=== PATIENT | female | born 1930 | race Caucasian/White ===

== ENCOUNTER 2017-03-23 17:12 | Inpatient (IN) | payer OTHER, MEDICARE ==
[~2017-03-23] VITALS: Ht 165.1 cm; Wt 64.5 kg
[~2017-03-23 17:12] MED LIST: BP MEDICATION; CIPR500T4 PO; GLUC10TA3 OR; GLUCTAB OR; LISI-360 PO; UNK CHOLESTEROL; [UNRECOGNIZED DRUG - REMARK]
[2017-03-23 17:18] VITALS: BP 116/63; PULSE 93; RESP 14; TEMP 97.8; O2SAT 98
[2017-03-23] MEDS ORDERED: LEVO100T5 PO (18:15)
[2017-03-23] MEDS ORDERED: LEVO50TA4 PO (18:15)
[2017-03-23] MEDS ORDERED: HYDR12.57 PO (18:15)
[2017-03-23] MEDS ORDERED: AMLO10TA2 PO (18:15)
[2017-03-23] MEDS ORDERED: SODIUM CHLORIDE 0.9% FLUSH 10 ML FLUSH IVF PRN (18:15)
[2017-03-23] MEDS ORDERED: INSULIN HUMAN REGULAR 1,000 UNITS/10 ML VIAL IV PUSH ONE (18:15)
[2017-03-23] MEDS ORDERED: METF1000 PO (18:16)
--- NOTE | 2017-03-23 18:30 | PD ---
HPI Chief Complaint: Altered Mental Status Time Seen by Provider: 17:48 Travel History International Travel<30 days: No Contact w/Intl Traveler<30days: No Traveled to known affect area: No History of Present Illness HPI This patient developed slurring of speech and a facial droop 2 days ago. Yesterday she developed weakness of her left leg. Her daughter brings her in today for evaluation of these neurologic symptoms. Severity is moderate. No alleviating factors. She denies prior history of stroke. She takes no blood thinners and has had no head injury. Duration 2 days. PFSH Past Medical History Hx Anticoagulant Therapy: Yes (ASPIRIN 81MG) Diabetes: Yes Patient Takes Glucophage: Yes Diminished Hearing: No Hypertension: Yes Respiratory: Yes (BRONCHITIS/pna) Influenza Vaccination: Yes ?: Not Menopausal: Yes Past Surgical History Tonsillectomy: Yes Social History Alcohol Use: No Tobacco Use: No Substance Use: No Allergies-Medications (Allergen,Severity, Reaction): Coded Allergies: Codeine (Verified Allergy, Severe, UNKNOWN "YRS AGO", 03/23/17) Reported Meds & Prescriptions Reported Meds & Active Scripts Active Reported Metformin (Metformin HCl) 1,000 Mg Tab 1,000 Mg PO BIDPC With meals Hydrochlorothiazide 12.5 Mg Cap 12.5 Mg PO DAILY IN THE MORNING Amlodipine (Amlodipine Besylate) 10 Mg Tab 10 Mg PO DAILY Levothyroxine (Levothyroxine Sodium) 50 Mcg Tab 50 Mcg PO MOTUTHFRSA Levothyroxine (Levothyroxine Sodium) 100 Mcg Tab 100 Mcg PO SUWE Review of Systems General / Constitutional: No: Fever Eyes: No: Visual changes HENT: No: Headaches Cardiovascular: No: Chest Pain or Discomfort Respiratory: No: Shortness of Breath Gastrointestinal: No: Abdominal Pain Genitourinary: No: Dysuria Musculoskeletal: Positive: Weakness, No: Pain Skin: No Rash Neurologic: Positive: Weakness, Slurred Speech Psychiatric: No: Depression Endocrine: No: Polydipsia Hematologic/Lymphatic: No: Easy Bruising Physical Exam Narrative GENERAL: Well-nourished, well-developed patient in no apparent distress. SKIN: Focused skin assessment reveals no rash and nodules. Skin is Warm and dry. HEAD: Atraumatic. Normocephalic. EYES: Pupils equal and round. No scleral icterus. No injection or drainage. ENT: No nasal bleeding or discharge. Mucous membranes pink and moist. NECK: Trachea midline. No JVD. CARDIOVASCULAR: Regular rate and rhythm. No murmur appreciated. RESPIRATORY: No accessory muscle use. Clear to auscultation. Breath sounds equal bilaterally. GASTROINTESTINAL: Abdomen soft, non-tender, nondistended. Hepatic and splenic margins not palpable. MUSCULOSKELETAL: No obvious deformities. No clubbing. No cyanosis. No edema. NEUROLOGICAL: Awake and alert. Has a left-sided facial droop. Motor exam reveals some weakness of the left leg compared to the right leg. Upper extremities are symmetric and full. Her speech is understandable with just a hint of slurring. PSYCHIATRIC: Appropriate mood and affect; insight and judgment normal. Data Data Last Documented VS Vital Signs Date Time Temp Pulse Resp B/P Pulse Ox O2 Delivery O2 Flow Rate FiO2 03/23/17 18:37 96 Room Air 03/23/17 17:18 97.8 93 14 116/63 Orders Electrocardiogram (03/23/17 18:08) Prothrombin Time / Inr (Pt) (03/23/17 18:08) Act Partial Throm Time (Ptt) (03/23/17 18:08) Complete Blood Count With Diff (03/23/17 18:08) Basic Metabolic Panel (Bmp) (03/23/17 18:08) Ct Brain W/O Iv Contrast(Rout) (03/23/17 18:08) Ecg Monitoring (03/23/17 18:08) Iv Access Insert/Monitor (03/23/17 18:08) Oximetry (03/23/17 18:08) Blood Glucose (03/23/17 18:08) Sodium Chloride 0.9% Flush (Ns Flush) (03/23/17 18:15) Insulin Human Regular Inj (Novolin R Inj (03/23/17 18:15) Admit Order (Ed Use Only) (03/23/17 18:43) Labs Laboratory Tests Test 03/23/17 18:12 White Blood Count 10.3 TH/MM3 Red Blood Count 4.08 MIL/MM3 Hemoglobin 10.9 GM/DL Hematocrit 33.3 % Mean Corpuscular Volume 81.8 FL Mean Corpuscular Hemoglobin 26.8 PG Mean Corpuscular Hemoglobin 32.8 % Concent Red Cell Distribution Width 14.9 % Platelet Count 220 TH/MM3 Mean Platelet Volume 9.9 FL Neutrophils (%) (Auto) 69.8 % Lymphocytes (%) (Auto) 19.9 % Monocytes (%) (Auto) 6.2 % Eosinophils (%) (Auto) 3.4 % Basophils (%) (Auto) 0.7 % Neutrophils # (Auto) 7.2 TH/MM3 Lymphocytes # (Auto) 2.1 TH/MM3 Monocytes # (Auto) 0.6 TH/MM3 Eosinophils # (Auto) 0.4 TH/MM3 Basophils # (Auto) 0.1 TH/MM3 CBC Comment DIFF FINAL Differential Comment Prothrombin Time 10.1 SEC Prothromb Time International 0.9 RATIO Ratio Activated Partial 24.4 SEC Thromboplast Time MDM Medical Decision Making Medical Screen Exam Complete: Yes Emergency Medical Condition: Yes Medical Record Reviewed: Yes Differential Diagnosis CVA, TIA, intracranial lesion Narrative Course I have reviewed the patient's electronic medical record. IV placed CBC is normal Metabolic profile pending but will be reviewed shortly Coagulation studies are normal Brain CT is normal Presentation seems consistent with an acute ischemic stroke that happened 2 days ago. She did get an acute worsening yesterday in terms of left leg weakness. She is well out of any sort of TPA consideration given the length of symptoms. Call is placed to the hospitalist for admission for acute ischemic CVA. I will discuss when he calls. I gave her an aspirin Diagnosis Primary Impression: Acute ischemic right MCA stroke Admitting Information Admitting Physician Requests: it Mehrdad June MD March 23, 2017 18:30
[2017-03-23 18:31] LABS: AUTOMATED NEUTROPHIL # 7.2 TH/MM3 (1.8-7.7); BASOPHIL # 0.1 TH/MM3 (0-0.2); BASOPHIL % 0.7 % (0.0-2.0); EOSINOPHIL # 0.4 TH/MM3 (0-0.4); EOSINOPHIL % 3.4 % (0.0-4.0); HEMATOCRIT 33.3 % (35.0-46.0); HEMO FLAGS DIFF FINAL; LYMPH % 19.9 % (9.0-44.0); LYMPHOCYTE # 2.1 TH/MM3 (1.0-4.8); MEAN CELL VOLUME 81.8 FL (80.0-100.0); MEAN CORPUSCULAR HEMOGLOBIN 26.8 PG (27.0-34.0); MEAN CORPUSCULAR HGB CONC 32.8 % (32.0-36.0); MONO % 6.2 % (0.0-8.0); NEUT % 69.8 % (16.0-70.0); PLATELET COUNT 220 TH/MM3 (150-450); RED BLOOD COUNT 4.08 MIL/MM3 (4.00-5.30); RED CELL DISTRIBUTION WIDTH 14.9 % (11.6-17.2); WHITE BLOOD COUNT 10.3 TH/MM3 (4.0-11.0)
--- NOTE | 2017-03-23 18:34 | RADRPT ---
EXAM DATE/TIME: 03/23/2017 18:25 [facility] COMPARISON: No previous studies available for comparison. INDICATIONS : Altered mental status. RADIATION DOSE: 31.24 CTDIvol (mGy) MEDICAL HISTORY : Hypertension. Diabetes mellitus type 2. SURGICAL HISTORY : None. ENCOUNTER: Initial ACUITY: 1 day PAIN SCALE: 0/10 LOCATION: cranial TECHNIQUE: Multiple contiguous axial images were obtained of the head. Using automated exposure control and adj ustment of the mA and/or kV according to patient size, radiation dose was kept as low as reasonably a chievable to obtain optimal diagnostic quality images. FINDINGS: CEREBRUM: The ventricles are normal for age with moderate atrophic change with sulcal and ventricular prominenc e. Periventricular white matter lucencies are noted characteristic of chronic small vessel ischemic c hange. No evidence of midline shift, mass lesion, hemorrhage or acute infarction. No extra-axial flu id collections are seen. POSTERIOR FOSSA: The cerebellum and brainstem are intact. The 4th ventricle is midline. The cerebellopontine angle i s unremarkable. EXTRACRANIAL: The visualized portion of the orbits is intact. SKULL: The calvaria is intact. No evidence of skull fracture. CONCLUSION: 1. No acute hemorrhage or mass effect. 2. Atrophy and chronic small vessel ischemic change. Trever Bautista MD on March 23, 2017 at 18:32 Board Certified Radiologist. This report was verified electronically.
[2017-03-23 18:37] VITALS: O2SAT 96
[2017-03-23 18:43] LABS: APTT (PATIENT) 24.4 SEC (24.3-30.1); INTERNATIONAL NORMALIZED RATIO 0.9 RATIO; PROTHROMBIN TIME - PATIENT 10.1 SEC (9.8-11.6)
[2017-03-23] MEDS ORDERED: ASPIRIN 325 MG TAB PO ONE (19:00)
[2017-03-23 19:12] LABS: BICARBONATE 24.4 MEQ/L (21.0-32.0)
[2017-03-23 19:13] LABS: POTASSIUM 4.9 MEQ/L (3.5-5.1)
--- NOTE | 2017-03-23 20:19 | EKG ---
Date Performed: 03/23/2017 Time Performed: 17:58:39 PTAGE: 86 years EKG: Sinus rhythm WITH OCCASIONAL ECTOPIC PREMATURE COMPLEXES LOW QRS VOLTAGE IN PRECORDIAL LEADS POSSIBLE RIGHT VENTR ICULAR CONDUCTION DELAY INFERIOR Q WAVES ABNORMAL ECG PREVIOUS TRACING : 03/16/2014 15.40 Compared to prior tracing no significant change DOCTOR: Cathy Taylor Interpretating Date/Time 03/23/2017 20:17:25
[2017-03-23] MEDS: LEVOTHYROXINE SODIUM 50 MCG TAB PO SCH (21:00)
[2017-03-23] MEDS ORDERED: SODIUM CHLORIDE 0.9% FLUSH 10 ML FLUSH IV FLUSH PRN (21:30)
[2017-03-23] MEDS ORDERED: NALOXONE HCL 0.4 MG/ML AMP IV PRN (21:30)
[2017-03-23] MEDS ORDERED: SENNOSIDES 8.6 MG TAB PO PRN (21:30)
[2017-03-23] MEDS ORDERED: ACETAMINOPHEN 325 MG TAB PO PRN ×2 (21:30)
--- NOTE | 2017-03-23 21:40 | HHI.HP ---
[facility] Regulo Loya MD Admission Diagnosis acute ischemic CVA Diagnoses: Chief Complaint: Difficulty with speech, left leg swelling Travel History International Travel<30 Days: No Contact w/Intl Traveler <30 Da: No Traveled to Known Affected Are: No History of Present Illness The patient is an 86-year-old female with past medical history of hypertension and diabetes who is presenting to the hospital with slurred speech, facial droop and left leg swelling. The patient is unclear of why she is in the hospital. Her family elaborated that Wednesday morning the patient was acting different than usual. They mentioned the patient's speech was slurred and she had evidence of facial droop. They also noticed that the patient has not been cooking or eating. The patient herself denies any acute complaints. Today the patient was supposed to go to a primary care doctor appointment but that appointment was canceled by the primary care doctor. The patient's family noted that the patient's left foot was swollen and purple and they were concerned about that so the patient was taken to the hospital. The patient denies any prior episodes of slurred speech or facial droop. The patient's family states that the patient is acting more confused than usual. The patient denies any shortness of breath, chest pain or fevers. Review of Systems Except as stated in HPI: all other systems reviewed are Neg Past Family Social History Past Medical History Diabetes Hypertension Hypothyroidism Allergies: Coded Allergies: Codeine (Verified Allergy, Severe, UNKNOWN "YRS AGO", 03/23/17) Active Ordered Medications Current Medications Medications (Trade) Dose Ordered Sig/Ann Route Start Time Stop Time Status Last Admin (NS Flush) 2 ml UNSCH PRN IVF 03/23/17 18:15 (Synthroid) 50 mcg MoTuThFrSa@06 PO 03/23/17 21:00 Levothyroxine Sodium 100 mcg 100 mcg SuWe@06 PO 03/24/17 06:00 (1/2 NS 1000 ml Inj) 1,000 ml @ 75 mls/hr [id number] IV 03/23/17 21:17 03/24/17 23:56 UNV (NS Flush) 2 ml UNSCH PRN IV FLUSH 03/23/17 21:30 UNV (NS Flush) 2 ml BID IV FLUSH 03/24/17 09:00 UNV (Tylenol) 650 mg Q4H PRN PO 03/23/17 21:30 UNV (Colace) 100 mg Q12H PO 03/23/17 21:30 UNV (Senokot) 17.2 mg Q12H PRN PO 03/23/17 21:30 UNV (Heparin Inj) 5,000 units Q8H SQ 03/23/17 21:30 UNV (Tylenol) 650 mg Q6H PRN PO 03/23/17 21:30 UNV (Narcan Inj) 0.4 mg UNSCH PRN IV 03/23/17 21:30 UNV Family History The patient's mother had many mini strokes Social History The patient does not smoke or drink. Physical Exam Vital Signs Vital Signs Date Time Temp Pulse Resp B/P Pulse Ox O2 Delivery O2 Flow Rate FiO2 03/23/17 18:37 96 Room Air 03/23/17 17:18 97.8 93 14 116/63 98 Physical Exam GENERAL: Well-nourished, well-developed patient in no apparent distress. SKIN: Focused skin assessment reveals no rash and nodules. Skin is Warm and dry. HEAD: Atraumatic. Normocephalic. EYES: Pupils equal and round. No scleral icterus. No injection or drainage. ENT: No nasal bleeding or discharge. Mucous membranes pink and moist. NECK: Trachea midline. No JVD. CARDIOVASCULAR: Regular rate and rhythm. No murmur appreciated. RESPIRATORY: No accessory muscle use. Clear to auscultation. Breath sounds equal bilaterally. GASTROINTESTINAL: Abdomen soft, non-tender, nondistended. Hepatic and splenic margins not palpable. MUSCULOSKELETAL: No obvious deformities. No clubbing. Left lower extremity with 1-2+ edema. No calf tenderness. NEUROLOGICAL: Awake and alert. Has a left-sided facial droop. Motor exam normal. Her speech is clear. PSYCHIATRIC: Appropriate mood and affect; insight and judgment normal. Laboratory Laboratory Tests Test 03/23/17 18:12 White Blood Count 10.3 Red Blood Count 4.08 Hemoglobin 10.9 Hematocrit 33.3 Mean Corpuscular Volume 81.8 Mean Corpuscular Hemoglobin 26.8 Mean Corpuscular Hemoglobin 32.8 Concent Red Cell Distribution Width 14.9 Platelet Count 220 Mean Platelet Volume 9.9 Neutrophils (%) (Auto) 69.8 Lymphocytes (%) (Auto) 19.9 Monocytes (%) (Auto) 6.2 Eosinophils (%) (Auto) 3.4 Basophils (%) (Auto) 0.7 Neutrophils # (Auto) 7.2 Lymphocytes # (Auto) 2.1 Monocytes # (Auto) 0.6 Eosinophils # (Auto) 0.4 Basophils # (Auto) 0.1 CBC Comment DIFF FINAL Differential Comment Prothrombin Time 10.1 Prothromb Time International 0.9 Ratio Activated Partial 24.4 Thromboplast Time Sodium Level 134 Potassium Level 4.9 Chloride Level 98 Carbon Dioxide Level 24.4 Anion Gap 12 Blood Urea Nitrogen 28 Creatinine 1.12 Estimat Glomerular Filtration 46 Rate Random Glucose 315 Calcium Level 9.6 Result Diagram: 03/23/17181103/23/171811 Imaging Last Impressions Head CT 03/23/171807 Signed Impressions: Service Date/Time: Thursday, March 23, 2017 18:25 - CONCLUSION: 1. No acute hemorrhage or mass effect. 2. Atrophy and chronic small vessel ischemic change. Trever Bautista MD Assessment and Plan Assessment and Plan Acute CVA The pt presented with left sided facial droop and slurred speech that started Wednesday morning at the latest. CT of the brain unremarkable. She received ASA. - continue ASA. - MRI of brain, echo, carotid duplex pending. - check a TSH and a lipid profile. - permissive HTN. - IVFs. - ST/ PT/ OT. - case management consult. - Check a UA and chest x-ray. Left leg swelling New onset. Concern for DVT. - US pending. Acute renal insufficiency Unsure of baseline. - IV fluids. - Avoid nephrotoxic agents. DM On metformin as an outpt. - hold metformin. - check an A1c. - insulin sliding scale with Accu-Cheks. HTN Blood pressure well controlled at this time. - hold home meds and monitor. Hypothyroidism On levothyroxine as an outpt. - check a TSH. - continue home med. PPx: Heparin Code Status DNR Discussed Condition With Pt, pt's family, Dr. June. Physician Certification 2 Midnight Certification Type: Admission for Inpatient Services Order for Inpatient Services The services are ordered in accordance with Medicare regulations or non- Medicare payer requirements, as applicable. In the case of services not specified as inpatient-only, they are appropriately provided as inpatient services in accordance with the 2-midnight benchmark. Estimated LOS (days): 2 days is the estimated time the patient will need to remain in the hospital, assuming treatment plan goals are met and no additional complications. Post-Hospital Plan: Not yet determined Trever Valenzuela DO March 23, 2017 21:40
[2017-03-23 21:48] VITALS: O2SAT 96
--- NOTE | 2017-03-23 21:49 | RADRPT ---
EXAM DATE/TIME: 03/23/2017 21:30 [facility] COMPARISON: CHEST SINGLE AP, March 16, 2014, 15:55. INDICATIONS : Shortness of breath. MEDICAL HISTORY : None. SURGICAL HISTORY : None. ENCOUNTER: Initial ACUITY: 1 day PAIN SCORE: 0/10 LOCATION: Bilateral chest FINDINGS: A single view of the chest demonstrates the lungs to be symmetrically aerated without evidence of mas s, infiltrate or effusion. The cardiomediastinal contours are unremarkable. Osseous structures are intact. CONCLUSION: No acute disease. Trever Bautista MD on March 23, 2017 at 21:47 Board Certified Radiologist. This report was verified electronically.
[2017-03-23] MEDS: DOCUSATE SODIUM 100 MG CAP PO SCH (21:57)
[2017-03-23] MEDS: SODIUM CHLOR 0.45% 1000 ML INJ 1,000 ML IV SCH (21:57)
[2017-03-23] MEDS ORDERED: HEPARIN SODIUM - SQ 10,000 UNITS/ML VIAL SQ SCH (22:00)
[2017-03-23 22:32] VITALS: BP 142/77; PULSE 88; RESP 16; O2SAT 97
--- NOTE | 2017-03-23 23:00 | RADRPT ---
EXAM DATE/TIME: 03/23/2017 22:35 [facility] COMPARISON: CT BRAIN W/O CONTRAST, March 23, 2017, 18:25. INDICATIONS : Patient with altered mental status. Evaluate for CVA. MEDICAL HISTORY : Diabetes mellitus type 2. SURGICAL HISTORY : Tonsillectomy. ENCOUNTER: Subsequent ACUITY: 1 day PAIN SCORE: 0/10 LOCATION: cranial TECHNIQUE: Multiplanar, multisequence MRI of the brain was performed without contrast. FINDINGS: CEREBRUM: The ventricles are normal for age. No evidence of midline shift, mass lesion, hemorrhage or acute in farction. No extraaxial fluid collections are seen. The pituitary gland and suprasellar cistern are normal in configuration. WHITE MATTER: On the flow images there is increased signal noted in the periventricular white matter and centrum se miovale in a pattern characteristic of chronic small vessel ischemic change. POSTERIOR FOSSA: The cerebellum and brainstem are intact. The 4th ventricle is midline. The cerebellopontine angle is unremarkable. The cerebellar tonsils are normal in position. DIFFUSION IMAGING: No focal areas of restricted diffusion are seen. No evidence of acute infarction. EXTRACRANIAL: The visualized portions of the orbits and paranasal sinuses are unremarkable. CONCLUSION: 1. No acute hemorrhage, mass or infarction. 2. Extensive chronic small vessel ischemic change. Trever Bautista MD on March 23, 2017 at 22:56 Board Certified Radiologist. This report was verified electronically.
--- NOTE | 2017-03-23 23:35 | RADRPT ---
EXAM DATE/TIME: 03/23/2017 23:09 [facility] COMPARISON: No previous studies available for comparison. INDICATIONS : Left leg swelling. MEDICAL HISTORY : Diabetes. Hypertension. Anticoagulant thepary, Aspirin 81mg. SURGICAL HISTORY : Tonsillectomy. ENCOUNTER: Initial ACUITY: 2 day PAIN SCORE: 0/10 LOCATION: Left leg. TECHNIQUE: Venous ultrasound of the leg was performed from the inguinal ligament to the proximal calf. Real-vern e, color Doppler and spectral tracing, compression and augmentation techniques were used. FINDINGS: There is extensive deep venous thrombosis from external iliac vein down to common femoral, superficia l femoral vein into popliteal vein and below the knee vessels. There is also thrombus within the grea ter saphenous vein. CONCLUSION: Extensive DVT. Marlen Jett MD on March 23, 2017 at 23:33 Board Certified Radiologist. This report was verified electronically.
[2017-03-23 23:36] LABS: BACTERIA, URINE MANY /hpf; BLOOD, URINE TRACE (NEG); COMMENT (UR) CULTURE INDICATED; CULTURE IF INDICATED CULTURE INDICATED; GLUCOSE,URINE 1000 mg/dL (NEG); KETONE, URINE NEG (NEG); MUCUS URINE FEW /lpf (OCC); NITRITE,URINE NEG (NEG); SQUAMOUS EPITHELIAL CELL URINE 57 /hpf (0-5); URINE COLOR YELLOW (YELLW/STRAW)
[2017-03-24] VITALS (8 sets, daily range): BP systolic 135–164; BP diastolic 62–78; PULSE 72–88; RESP 16–20; TEMP 96.3–97.6; O2SAT 93–100
--- NOTE | 2017-03-24 00:35 | RADRPT ---
EXAM DATE/TIME: 03/23/2017 22:55 [facility] COMPARISON: No previous studies available for comparison. INDICATIONS : Cerebrovascular accident. Facial droop. Left leg weakness. MEDICAL HISTORY : Hypertension. Diabetes. Anticoagulant therapy, Aspirin 81mg. SURGICAL HISTORY : Tonsillectomy. ENCOUNTER: Initial ACUITY: 2 days PAIN SCORE: 0/10 LOCATION: Bilateral neck PEAK SYSTOLIC VELOCITIES (cm/sec): ICA/CCA RATIO: Right: 0.5 Left: 0.9 ICA: Right: 52 Left: 79 CCA: Right: 102 Left: 88 ECA: Right: 124 Left: 74 VERTEBRAL: Right: 58 antegrade Left: 48 antegrade Elevated flow velocities and ICA/CCA ratios have been found to correlate with increased degrees of vessel stenosis, calculated as percentage of diameter relative to a normal segment of distal ICA/CCA FINDINGS: Antegrade flow is seen in both vertebral arteries. There is mild atherosclerotic plaquing at the orig in of left ICA without any significant stenosis. CONCLUSION: No evidence for hemodynamically significant stenosis. Marlen Jett MD on March 24, 2017 at 0:32 Board Certified Radiologist. This report was verified electronically.
[2017-03-24] MEDS ORDERED: HEPARIN SODIUM - IV 10,000 UNITS/10 ML VIAL IV ONE (02:00)
[2017-03-24] MEDS: cefTRIAXone INJ 1,000 MG in SODIUM CHLORIDE 0.9% INJ 100 ML IV SCH (02:31)
[2017-03-24 03:02] LABS: AUTOMATED NEUTROPHIL # 4.1 TH/MM3 (1.8-7.7); BASOPHIL % 0.3 % (0.0-2.0); EOSINOPHIL # 0.2 TH/MM3 (0-0.4); EOSINOPHIL % 3.2 % (0.0-4.0); HEMO FLAGS DIFF FINAL; LYMPHOCYTE # 2.6 TH/MM3 (1.0-4.8); MEAN CELL VOLUME 81.7 FL (80.0-100.0); MONO % 6.6 % (0.0-8.0); NEUT % 54.9 % (16.0-70.0); PLATELET COUNT 203 TH/MM3 (150-450); RED BLOOD COUNT 3.79 MIL/MM3 (4.00-5.30); RED CELL DISTRIBUTION WIDTH 14.6 % (11.6-17.2); WHITE BLOOD COUNT 7.5 TH/MM3 (4.0-11.0)
[2017-03-24 03:13] LABS: APTT (PATIENT) 26.1 SEC (24.3-30.1); INTERNATIONAL NORMALIZED RATIO 0.9 RATIO; PROTHROMBIN TIME - PATIENT 10.1 SEC (9.8-11.6)
[2017-03-24] MEDS: HEPARIN-D5W INJ 250 ML IV SCH (03:38)
[2017-03-24 03:42] LABS: ALKALINE PHOSPHATASE 72 U/L (45-117); ALT (GPT) 16 U/L (10-53); ANION GAP 9 MEQ/L (5-15); AST (GOT) 19 U/L (15-37); BICARBONATE 27.6 MEQ/L (21.0-32.0); BLOOD UREA NITROGEN 26 MG/DL (7-18); CHLORIDE 100 MEQ/L (98-107); GLOMERULAR FILTRATION RATE 58 ML/MIN (>89); HDL CHOLESTEROL 59.7 MG/DL (40.0-60.0); LDL CHOLESTEROL 72 MG/DL (0-99); POTASSIUM 3.7 MEQ/L (3.5-5.1); SODIUM (NA) 137 MEQ/L (136-145); TOTAL BILIRUBIN ADULT 0.5 MG/DL (0.2-1.0)
[2017-03-24] MEDS: INSULIN ASPART SUPPLEMENTAL SCALE SQ SCH ×4 (05:42→21:00)
[2017-03-24] MEDS: LEVOTHYROXINE SODIUM 100 MCG TAB PO SCH (05:47)
[2017-03-24] MEDS ORDERED: HEPARIN SODIUM - IV 10,000 UNITS/10 ML VIAL IV PRN ×2 (08:00)
[2017-03-24] MEDS: ASPIRIN EC 81 MG TABEC PO SCH (09:22)
[2017-03-24] MEDS: SODIUM CHLORIDE 0.9% FLUSH 10 ML FLUSH IV FLUSH SCH ×2 (09:22→21:00)
[2017-03-24] MEDS: DOCUSATE SODIUM 100 MG CAP PO SCH ×2 (09:22→22:00)
--- NOTE | 2017-03-24 11:04 | EC ---
Study Study Date:03/24/2017 STUDY CONCLUSIONS SUMMARY LEFT VENTRICLE: The cavity size was normal. Wall thickness was increased in a pattern of mild LVH. There was concentric hypertrophy. Systolic function was normal. The estimated ejection fraction was in the range of 60% to 65%. Although no diagnostic regional wall motion abnormality was identified, this possibility cannot be completely excluded on the basis of this study. Doppler parameters are consistent with abnormal left ventricular relaxation (grade 1 diastolic dysfunction). If LV function is below 40, please consider prescribing an ACEI or ARB or document rationale for non-use. PROCEDURE DATA STUDY STATUS: Elective. Procedure: Transthoracic echocardiography. Image quality was good. Scanning was performed from the parasternal, apical, and subcostal acoustic windows. Study completion: The patient tolerated the procedure well. Transthoracic echocardiography. M-mode, complete 2D, complete spectral Doppler, and color Doppler. Height: Height: 67in. Weight: Weight: 133.7lb. Body mass index: BMI: 21kg/m^2. Body surface area: BSA: 1.71m^2. Patient status: Inpatient. CARDIAC ANATOMY LEFT VENTRICLE: The cavity size was normal. Wall thickness was increased in a pattern of mild LVH. There was concentric hypertrophy. Systolic function was normal. The estimated ejection fraction was in the range of 60% to 65%. Although no diagnostic regional wall motion abnormality was identified, this possibility cannot be completely excluded on the basis of this study. Doppler parameters are consistent with abnormal left ventricular relaxation (grade 1 diastolic dysfunction). AORTIC VALVE: The valve appears to be grossly normal. Trileaflet. Doppler: There was no stenosis. No significant regurgitation. Valve area: 2.61cm^2 (Vmax). Indexed valve area: 1.53cm^2/m^2 (Vmax). MITRAL VALVE: The valve appears to be grossly normal. Doppler: There was no evidence for stenosis. No significant regurgitation. Peak gradient: 3mm Hg (D). LEFT ATRIUM: The atrium was normal in size. PULMONIC VALVE: Not well visualized. Doppler: There was no evidence for stenosis. Trace regurgitation. TRICUSPID VALVE: The valve appears to be grossly normal. Doppler: There was no evidence for stenosis. Trace regurgitation. PERICARDIUM: There was no pericardial effusion. Patient weight: 133.7lb _Ejection fraction:_ 65-75% _Fractional shortening:_ 32% up to 5Kg 5-11.5Kg 11.6-22.9Kg 23-45Kg 45-57Kg Aortic Root 7-13 <17 13-22 17-27 17-27 LA diam 6-13 <23 24-38 33-47 37-40 RVID 10-17 7-15 7-15 7-18 8-17 LVIDd 12-22 <32 24-38 33-47 37-40 LVPW 2-4 3-6 5-7 6-8 7-8 IVS 2-4 3-6 5-7 6-8 7-8 BASIC MEASUREMENTS ADULT NORMAL Left ventricle LV internal dimension, ED, chordal *30.8 mm 43-52 level, PLAX LV internal dimension, ES, chordal 23.1 mm 23-38 level, PLAX Fractional shortening, chordal level, *25 % >29 PLAX LV posterior wall thickness, ED 10.6 mm IVS/LVPW ratio, ED 1.08 <1.3 Ventricular septum Septal thickness, ED 11.5 mm Aortic valve Leaflet separation 19 mm 15-26 BASIC MEASUREMENTS ADULT NORMAL Aortic valve Leaflet separation 19 mm 15-26 Aorta Root diameter, ED 30 mm 20-37 Left atrium Anterior-posterior dimension, ES 28 mm 19-40 Anterior-posterior dimension index, ES 1.64 cm/m^2 <2.2 LA/aortic root ratio 0.93 DOPPLER MEASUREMENTS ADULT NORMAL Aortic valve Peak velocity, S 148 cm/s Valve area, Vmax 2.61 cm^2 Valve area index, Vmax 1.53 cm^2/m^2 Mitral valve Peak E-wave velocity 91.8 cm/s Peak A-wave velocity 124 cm/s Deceleration time 194 ms 150-230 Peak gradient, D 3 mm Hg Peak E/A ratio 0.7 Pulmonic valve Peak velocity, S 111 cm/s Regurgitant velocity, ED 140 cm/s LEGEND: Mean values are shown as u=mean value. Asterisk (*) ingram values outside specified normal range. Prepared and signed by Ceasar Ang [id number]
[2017-03-24 11:43] LABS: APTT (PATIENT) 129.1 SEC (24.3-30.1)
[2017-03-24] MEDS: SODIUM CHLOR 0.45% 1000 ML INJ 1,000 ML IV SCH (11:54)
[2017-03-24 13:38] LABS: APTT (PATIENT) 74.1 SEC (24.3-30.1)
[2017-03-24 15:21] LABS: APTT (PATIENT) 48.1 SEC (24.3-30.1)
[2017-03-24 16:01] LABS: HEMOGLOBIN A1a 1.1 %; HEMOGLOBIN A1b 2.7 %; HEMOGLOBIN Ao 77.9 %; HEMOGLOBIN P3 4.9 %
--- NOTE | 2017-03-24 16:33 | HHI.PR ---
Subjective Remarks Pt evaluated earlier family at bedside. Pt states that she feels well. Doesn't have any pain. Facial drooping per daughter is minimal. PT at bedside and states that pt did have some weakness noted on the left lower extremity upon ambulation. Pt denies any CP/SOB/N/V Objective Vitals Vital Signs Date Time Temp Pulse Resp B/P Pulse Ox O2 Delivery O2 Flow Rate FiO2 03/24/17 12:23 96.4 88 18 164/78 97 03/24/17 09:13 93 21 03/24/17 07:57 96.3 77 18 135/66 95 03/24/17 04:59 97.6 81 16 139/71 98 03/24/17 02:00 72 03/24/17 00:40 97.1 77 16 138/74 100 03/23/17 22:32 88 16 142/77 97 03/23/17 21:48 96 03/23/17 18:37 96 Room Air 03/23/17 17:18 97.8 93 14 116/63 98 I/O 03/23/17 03/23/17 03/23/17 03/24/17 03/24/17 03/24/17 07:00 15:00 23:00 07:00 15:00 23:00 Intake Total 120 ml 240 ml Balance 120 ml 240 ml Intake Oral 120 ml 240 ml # Voids 2 1 Result Diagram: 03/24/17 0238 03/24/17 0238 Imaging Last Impressions Head CT 03/23/17 1808 Signed Impressions: Service Date/Time: Thursday, March 23, 2017 18:25 - CONCLUSION: 1. No acute hemorrhage or mass effect. 2. Atrophy and chronic small vessel ischemic change. Trever Bautista MD Lower Extremity Ultrasound 03/23/17 0000 Signed Impressions: Service Date/Time: Thursday, March 23, 2017 23:09 - CONCLUSION: Extensive DVT. Marlen Jett MD Chest X-Ray 03/23/17 0000 Signed Impressions: Service Date/Time: Thursday, March 23, 2017 21:30 - CONCLUSION: No acute disease. Trever Bautista MD Carotid Artery Ultrasound 03/23/17 0000 Signed Impressions: Service Date/Time: Thursday, March 23, 2017 22:55 - CONCLUSION: No evidence for hemodynamically significant stenosis. Marlen Jett MD Brain MRI 03/23/17 0000 Signed Impressions: Service Date/Time: Thursday, March 23, 2017 22:35 - CONCLUSION: 1. No acute hemorrhage, mass or infarction. 2. Extensive chronic small vessel ischemic change. Trever Bautista MD Objective Remarks GENERAL: Well-nourished, well-developed patient in no apparent distress. CARDIOVASCULAR: Regular rate and rhythm. No murmur appreciated. RESPIRATORY: No accessory muscle use. Clear to auscultation. Breath sounds equal bilaterally. GASTROINTESTINAL: Abdomen soft, non-tender, nondistended. MUSCULOSKELETAL: Left lower extremity with 1+ edema. No calf tenderness. NEUROLOGICAL: Awake and alert. Has a minimal left-sided facial droop. However all other cranial nerves appear normal Motor exam normal. Her speech is clear. She is unable to tell me the year and the month however she recognizes her family members knows where she is able to give me her birthday and her name PSYCHIATRIC: Appropriate mood and affect A/P Assessment and Plan Most likely a TIA The pt presented with left sided facial droop and slurred speech that started Wednesday morning at the latest. CT of the brain unremarkable. She received ASA. - MRI of brain unremarkable other than Extensive chronic small vessel ischemic change, echo shows an EF of 60-65 with grade 1 diastolic dysfunction, carotid duplex negative for stenosis -check MRA - TSH 5.66 and LDL 72 HDL 59 [id number] - permissive HTN. - IVFs. - Speech therapy evaluated the patient and recommends regular thin liquids diet , physical therapy evaluated the patient and recommends PT at rehabilitation, OT consult pending - case management consult. -We'll get a neurology evaluation for further recommendations -UA is positive for UTI, urine cx growing gram neg rods and currently on Rocephin Left leg swelling New onset. Ultrasound of the left lower extremity shows extensive DVT. She was started on heparin drip. I have consulted hematology for further recommendations as far as anticoagulation and length of anticoagulation. This is her first DVT, denies traveling long distances. No family history Acute renal insufficiency Unsure of baseline. - IV fluids. - Avoid nephrotoxic agents. DM On metformin as an outpt. - hold metformin. - check an A1c. - insulin sliding scale with Accu-Cheks. HTN -I have resumed her home medications Hypothyroidism On levothyroxine as an outpt. PPx: Heparin Discharge Planning d/c pending further work-up and clinical improvement Jordana De La Rosa MD March 24, 2017 16:33
[2017-03-24] MEDS ORDERED: WARFARIN SOD 2 MG TAB PO SCH (20:00)
--- NOTE | 2017-03-24 22:05 | MB ---
cc: TRACI PEREZ M.D. DATE OF CONSULTATION 03/24/2017 REASON FOR CONSULTATION TIA. HISTORY OF PRESENT ILLNESS Ms. Cruz is a nice 86-year woman whose daughter noted she had slurred speech, left facial droop. She also had weakness in the left arm and left leg. She came to the hospital. The symptoms have since resolved. She is back to normal. She has noticed to have a DVT in the left leg for which she is on IV heparin. Denies any previous history of stroke or TIA. PAST MEDICAL HISTORY 1. Diabetes. 2. Hypertension. 3. Hypothyroidism. ALLERGIES CODEINE. MEDICATIONS Current medications are: 1. Aspirin 81 mg daily. 2. Heparin IV. 3. Synthroid. 4. Ceftriaxone. 5. Tylenol. 6. Colace p.r.n. NEUROLOGIC EXAMINATION VITAL SIGNS: Blood pressure is 164/78, pulse is 80, respirations 18, temperature 96.4 degrees. Higher cortical functions normal including speech. Cranial nerves are intact. Motor exam she has normal strength and tone of all major groups in both upper and lower extremities. There is no drift. Fine motor skills are normal. Reflexes are symmetric. IMAGING CT of the brain, no acute changes. Atrophy, chronic ischemic demyelinization is present. MRI of the brain chronic ischemic change. No acute change. No acute stroke identified. Carotid ultrasound no evidence for any significant stenosis. LABORATORY DATA White count 7500, hemoglobin is 10.2, hematocrit 31%, platelets 203,000. Sodium is 137, potassium 3.7, chloride 100, CO2 27.6, the BUN is 26, creatinine 0.90. GFR is 58, glucose 262. LDL 72, HDL 59.7. Triglycerides 133. Cholesterol 158. Echocardiogram, EF is 60-65%, concentric LVH is present. Systolic function of the left ventricle normal. The aortic valve is normal. Mitral valve normal. Left atrium normal size. Pulmonic valve trace regurgitation. Tricuspid valve trace regurgitation. Pericardium is normal. IMPRESSION Transient ischemic attack now resolved. RECOMMENDATIONS Continue cardiac monitoring. Rule out A fib. She may be a candidate for long-term awake overnight monitor with a loop recorder following discharge to rule out A fib. Continue anticoagulation for DVT. MD SALAS Coley/SHAMIR /4:00 PM /9:52 PM
--- NOTE | 2017-03-24 22:06 | RADRPT ---
EXAM DATE/TIME: 03/24/2017 21:35 [facility] COMPARISON: MRI BRAIN W/O CONTRAST, March 23, 2017, 22:35. INDICATIONS : Vertigo. MEDICAL HISTORY : Diabetes mellitus type 2. Cardiovascular disease SURGICAL HISTORY : None. ENCOUNTER: Subsequent ACUITY: 2 day PAIN SCORE: 3/10 LOCATION: Bilateral cranial Please note a normal MRA of the brain does not entirely exclude the possibility of a small aneurysm, nor the possibility of distal intracranial vessel disease. TECHNIQUE: 3D time of flight MRA was performed. Source images, multiplanar STS MIP, and 3D volume MIP reconstru ctions were reviewed. FINDINGS: There is excellent visualization of the major intracranial arteries out to the second-order branch ve ssels. There is no evidence for aneurysm, vessel truncation or stenosis, and no evidence for vascula r malformation. 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 CONCLUSION: Normal examination for a patient of this age. Kenji Edmonds MD on March 24, 2017 at 22:03 Board Certified Radiologist. This report was verified electronically.
[2017-03-24 23:13] LABS: APTT (PATIENT) 42.9 SEC (24.3-30.1)
[2017-03-25] VITALS: BP 154/84; PULSE 75; RESP 20; TEMP 96.6; O2SAT 97
[2017-03-25] MEDS: cefTRIAXone INJ 1,000 MG in SODIUM CHLORIDE 0.9% INJ 100 ML IV SCH (01:32)
[2017-03-25] MEDS: LEVOTHYROXINE SODIUM 50 MCG TAB PO SCH (05:49)
--- NOTE | 2017-03-25 06:49 | MB ---
cc: JORDANA DE LA ROSA MD, RUBY ANNE E. M.D. DATE OF CONSULTATION 03/24/2017 DATE OF [address] Jordana De La Rosa CHIEF COMPLAINT Dr. De La Rosa requested consultation for Mrs. Cruz regarding new extensive left lower extremity deep vein thromboses. HISTORY OF PRESENT ILLNESS Mrs. Cruz is an 86-year-old woman with a history of diabetes, hypertension, early dementia. Her story is supplemented by her daughter I called on the phone. Daughter describes that she gave up driving as times she got lost. She could not come home from [place]. She also was advised by Dr. Loya, her primary physician, to possibly give up driving. She lives independently. She has been forgetful. She forgets to eat. She does a lot of sitting around in her recliner, but her legs are down. The Wednesday prior to admission, she apparently was well. Her oil well services dispatcher came to visit. She had no leg swelling. On Wednesday, the patient stayed home alone. The following day on Wednesday, daughter noted some left leg swelling and brought her on over to her house. She rested and elevated the left leg. Despite elevation, the leg became progressively worse and more swollen. At the same time on Wednesday, she noticed a left facial droop. There were a history of slurred speech. She was admitted with altered mental status change. None of this was substantiated by the daughter. She remarked that she brought her in specifically because the left leg was swollen. She was found to have an extensive left lower extremity deep vein thromboses. Ultrasound of the legs shows deep venous thrombosis extending from external iliac vein down to the common femoral, superficial femoral into popliteal and below the knee vessels. There is thrombus within the greater vein as well. She started to feel better after starting on unfractionated heparin. The swelling has gone down. The patient reports that the leg feels less tight. She denies any prior history of venous thromboembolic events. Her daughter thought that she was not eating and drinking on her own either, forgetting. The patient came in with acute renal insufficiency with a BUN of 28, creatinine 1.12. Clinically, she was dry. Renal function improved after hydration was initiated. There are no other provocation for left lower extremity deep vein thromboses. There is no long plane ride, no long car ride. It seems to be unprovoked except possibly by prolonged sitting and dehydration. PAST MEDICAL HISTORY 1. Diabetes 2. Hypertension 3. Dementia 4. Left lower extremity deep vein thromboses 5. Mild anemia PAST SURGICAL HISTORY Tonsillectomy SOCIAL HISTORY Denies any tobacco, alcohol or illicit drug use. FAMILY HISTORY Reports both parents at an older age. No family history of cancer. PHYSICAL EXAM VITALS: Temperature 96.4, heart rate 88, respiratory rate 18, blood pressure 164/78, saturation 97%. GENERAL: Mrs. Fenton is a well-developed elderly pleasant woman in no acute distress. HEAD, EYES, EARS, NOSE, AND THROAT: Her pupils are reactive to light and accommodation. Oropharynx is clear. NECK: Supple. LUNGS: Clear. CARDIOVASCULAR: Exam reveals a normal rate, rhythm. ABDOMEN: Benign. EXTREMITIES: Lower extremities with dusky reddish discoloration of the left leg more prominent than the right. Some mild senile purpura IV site on the right forearm. She is forgetful, but appropriate and pleasant. LABORATORY DATA BUN of 26 and creatinine 0.92, hemoglobin A1c of 10, calcium of 9.4, TSH of 5.66, hemoglobin of 10.2, MCV 81.7. White blood cell and count, platelet count are normal. ASSESSMENT/PLAN Mrs. Cruz is an 86-year-old woman with multiple medical problems including diabetes, hypertension, mild anemia and early dementia. She has had forgetfulness, however, still manages to remain independent at home. From daughters evaluation, apparently the patient is becoming more forgetful to even forgetting to eat and drink. She also sits around which may have precipitated the blood clot. Neurology has been consulted by the primary team. She has some left facial weakness. She denies any other symptoms. No vision changes. No headaches. No other subjective weakness. MRI is unrevealing of the source except for extensive chronic small vessel ischemic changes. The left facial droop seems to be more acute from history of the daughter. We had a lengthy discussion about the risks and benefits of various anticoagulant therapy for the left lower extremity deep vein thromboses. We discussed the risk and benefit of Coumadin versus the new oral anticoagulants. I favor using Coumadin in this elderly 86-year-old woman with mild renal insufficiency. She lives independently, but may be a fall risk. Both anticoagulant therapy would be a risk for her. However in light of the extensive deep vein thromboses, she would need to be on anticoagulation. It seems to be unprovoked except for the period of immobility and lack of drinking. The provocation may be her underlying dementia. I defer to neurology for treatment of the above and may make her functional status better. In the end, I recommend anticoagulant therapy with Coumadin. She is a known patient to Dr. Loya. The patient and her daughter plan to follow up with Dr. Loya upon discharge. We will give information on Coumadin. We will consult with pharmacy to assist in titrating her anticoagulant therapy. I will start with a low dose of Coumadin given that the patient may not have eaten a great deal prior to coming into the hospital and therefore may be vitamin K depleted already. We will continue to bridge to a therapeutic INR with unfractionated heparin. When she is more stable, we can switch to a low-molecular weight heparin. Her questions were answered to her satisfaction. MD TONY Scott/CHAU /7:12 PM /6:32 AM
[2017-03-25] MEDS: INSULIN ASPART SUPPLEMENTAL SCALE SQ SCH ×4 (06:51→20:58)
[2017-03-25] MEDS: HEPARIN-D5W INJ 250 ML IV SCH (07:48)
[2017-03-25 08:00] VITALS: BP 143/80; PULSE 75; RESP 18; TEMP 96.6; O2SAT 94
[2017-03-25] MEDS: SODIUM CHLORIDE 0.9% FLUSH 10 ML FLUSH IV FLUSH SCH ×2 (09:00→20:58)
[2017-03-25] MEDS: HYDROCHLOROTHIAZIDE 12.5 MG CAP PO SCH (09:34)
[2017-03-25] MEDS: DOCUSATE SODIUM 100 MG CAP PO SCH ×2 (09:35→20:58)
[2017-03-25] MEDS: ASPIRIN EC 81 MG TABEC PO SCH (09:35)
[2017-03-25 10:18] LABS: ANION GAP 9 MEQ/L (5-15); BICARBONATE 27.4 MEQ/L (21.0-32.0); BLOOD UREA NITROGEN 12 MG/DL (7-18); CHLORIDE 105 MEQ/L (98-107); FERRITIN 27 NG/ML (8-252); GLOMERULAR FILTRATION RATE 95 ML/MIN (>89); POTASSIUM 3.6 MEQ/L (3.5-5.1); SODIUM (NA) 141 MEQ/L (136-145); TRANSFERRIN IRON PROFILE 240 MG/DL (200-360)
[2017-03-25 12:00] VITALS: BP 120/74; PULSE 77; RESP 18; TEMP 97.8; O2SAT 95
--- NOTE | 2017-03-25 14:07 | PD.ONC.PN ---
Subjective Subjective Remarks L leg feels better. Daughter at bedside with diabetic nurse educator/Coumadin educator. Appetite good, eating well. Objective Data Date Time Temp Pulse Resp B/P Pulse Ox O2 Delivery O2 Flow Rate FiO2 03/25/17 12:00 97.8 77 18 120/74 95 03/25/17 08:00 96.6 75 18 143/80 94 03/25/17 00:00 96.6 75 20 154/84 97 03/24/17 20:00 96.5 81 20 139/62 95 03/24/17 19:00 83 Result Diagram: 03/24/17 0238 03/25/17 0830 Laboratory Results Laboratory Tests Test 03/24/17 03/24/17 03/25/17 14:39 22:57 08:30 Activated Partial 48.1 SEC 42.9 SEC 42.0 SEC Thromboplast Time Sodium Level 141 MEQ/L Potassium Level 3.6 MEQ/L Chloride Level 105 MEQ/L Carbon Dioxide Level 27.4 MEQ/L Anion Gap 9 MEQ/L Blood Urea Nitrogen 12 MG/DL Creatinine 0.60 MG/DL Estimat Glomerular Filtration 95 ML/MIN Rate Random Glucose 131 MG/DL Calcium Level 9.5 MG/DL Iron Level 36 MCG/DL Total Iron Binding Capacity 336 MCG/DL Percent Iron Saturation 10.7 % Ferritin 27 NG/ML Culture Results Microbiology Date/Time Procedure Status Source Growth 03/23/17 23:25 Urine Culture - Final Complete Urine Clean Catch Escherichia Coli Administered Medications Medications (Trade) Dose Ordered Sig/Ann Route PRN Reason Start Time Stop Time Status Last Admin Dose Admin Levothyroxine Sodium (Synthroid) 50 mcg MoTuThFrSa@06 PO 03/23/17 21:00 03/25/17 05:49 Levothyroxine Sodium (Synthroid) 100 mcg SuWe@06 PO 03/24/17 06:00 03/24/17 05:47 Sodium Chloride (NS Flush) 2 ml BID IV FLUSH 03/24/17 09:00 03/24/17 21:00 Docusate Sodium (Colace) 100 mg Q12HR PO 03/23/17 21:30 03/25/17 09:35 Aspirin 81 mg 81 mg DAILY PO 03/24/17 09:00 03/25/17 09:35 Ceftriaxone Sodium 1000 mg/ Sodium Chloride 100 ml @ 200 mls/hr Q24H IV 03/24/17 02:00 03/25/17 01:32 Heparin Sodium/ Dextrose (Heparin-D5W Inj) 250 ml @ 0 mls/hr TITRATE IV 03/24/17 02:00 03/25/17 07:48 Amlodipine Besylate (Norvasc) 10 mg DAILY PO 03/25/17 09:00 03/25/17 09:35 Hydrochlorothiazide (Microzide) 12.5 mg DAILY PO 03/25/17 09:00 03/25/17 09:34 Warfarin Sodium (Coumadin) 2 mg DAILY@16 PO 03/24/17 20:00 03/24/17 22:13 Objective Remarks GENERAL: Well-nourished, elderly woman, well-developed patient. SKIN: Warm and dry. HEAD: Normocephalic. L facial weakness appears less pronounced. EYES: No scleral icterus. No injection or drainage. NECK: Supple, trachea midline. No JVD or lymphadenopathy. LYMPHATIC: No adenopathy. CARDIOVASCULAR: Regular rate and rhythm without murmurs. RESPIRATORY: Breath sounds equal bilaterally. No accessory muscle use. GASTROINTESTINAL: Abdomen soft, non-tender, nondistended. EXTREMITIES: No cyanosis, or edema. MUSCULOSKELETAL: L leg swelling decreased, L leg still larger than R. Assessment/Plan Problem List: (1) DVT (deep venous thrombosis) Status: Acute Plan: LLE DVT, extensive, suspect precipitated by immobility prolonged sitting in recliner, decreased PO/fluid intake. Pt with dementia and lives alone. Daughter suspect mother is not eating or drinking. Discussed [facility] bridge to therapeutic INR Plans to follow with Dr. Loya. Stop UFH switch to Lovenox, increase Coumadin dose. Assessment 86 y/o woman with early dementia still living independently, presents with LLE DVT. Plan 1. Stop UFH 2. Start Lovenox 60mg Q12H 3. Bridge to therapeutic INR 4. Plan to follow up with Dr. Loya 5. Cont w/ DM and Coumadin teaching. Silvia Partida MD March 25, 2017 14:07
--- NOTE | 2017-03-25 14:21 | HHI.PR ---
Subjective Remarks Pt feeling well. has no complaints today, doesn't like the meat from her lunch. daughter at bedside, no worsening of symptoms. facial droop same. Pt ambulated w PT yesterday and daughter was concerned about that. Pt denies any CP/SOB/N/V Objective Vitals Vital Signs Date Time Temp Pulse Resp B/P Pulse Ox O2 Delivery O2 Flow Rate FiO2 03/25/17 12:00 97.8 77 18 120/74 95 03/25/17 08:00 96.6 75 18 143/80 94 03/25/17 00:00 96.6 75 20 154/84 97 03/24/17 20:00 96.5 81 20 139/62 95 03/24/17 19:00 83 I/O 03/24/17 03/24/17 03/24/17 03/25/17 03/25/17 03/25/17 07:00 15:00 23:00 07:00 15:00 23:00 Intake Total 120 ml 240 ml 240 ml Balance 120 ml 240 ml 240 ml Intake Oral 120 ml 240 ml 240 ml # Voids 2 1 3 # Bowel Movements 0 Result Diagram: 03/24/17 0238 03/25/17 0830 Imaging Last Impressions Head Magnetic Resonance Angiography 03/24/17 0000 Signed Impressions: Service Date/Time: Friday, March 24, 2017 21:35 - CONCLUSION: Normal examination for a patient of this age. Kenji Edmonds MD Head CT 03/23/17 1808 Signed Impressions: Service Date/Time: Thursday, March 23, 2017 18:25 - CONCLUSION: 1. No acute hemorrhage or mass effect. 2. Atrophy and chronic small vessel ischemic change. Trever Bautista MD Lower Extremity Ultrasound 03/23/17 0000 Signed Impressions: Service Date/Time: Thursday, March 23, 2017 23:09 - CONCLUSION: Extensive DVT. Marlen Jett MD Chest X-Ray 03/23/17 0000 Signed Impressions: Service Date/Time: Thursday, March 23, 2017 21:30 - CONCLUSION: No acute disease. Trever Bautista MD Carotid Artery Ultrasound 03/23/17 0000 Signed Impressions: Service Date/Time: Thursday, March 23, 2017 22:55 - CONCLUSION: No evidence for hemodynamically significant stenosis. Marlen Jett MD Brain MRI 03/23/17 0000 Signed Impressions: Service Date/Time: Thursday, March 23, 2017 22:35 - CONCLUSION: 1. No acute hemorrhage, mass or infarction. 2. Extensive chronic small vessel ischemic change. Trever Bautista MD Objective Remarks GENERAL: Well-nourished, well-developed patient in no apparent distress. CARDIOVASCULAR: Regular rate and rhythm. No murmur appreciated. RESPIRATORY: No accessory muscle use. Clear to auscultation. Breath sounds equal bilaterally. GASTROINTESTINAL: Abdomen soft, non-tender, nondistended. MUSCULOSKELETAL: Left lower extremity with 1+ edema. No calf tenderness. NEUROLOGICAL: Awake and alert. Has a minimal left-sided facial droop. However all other cranial nerves appear normal Motor exam normal. Her speech is clear. moves all extremities. able to feed herself PSYCHIATRIC: Appropriate mood and affect A/P Assessment and Plan Most likely a TIA The pt presented with left sided facial droop and slurred speech that started Wednesday morning at the latest. CT of the brain unremarkable. She received ASA. - MRI of brain unremarkable other than Extensive chronic small vessel ischemic change, echo shows an EF of 60-65 with grade 1 diastolic dysfunction, carotid duplex negative for stenosis - MRA-unremarkable - TSH 5.66 and LDL 72 HDL 59 - IVFs. - Speech therapy evaluated the patient and recommends regular thin liquids diet , physical therapy evaluated the patient and recommends PT at rehabilitation, OT following and recommends OT at rehab - case management consult. - Neuro evaluated the pt. suspect TIA and feels that pt may be a candidate for shelter cardiac loop monitoring to r/o atria fib. pt already being anticoagulated -UA is positive for UTI, urine cx growing E. Coli sensitive to Rocephin Left leg swelling New onset. Ultrasound of the left lower extremity shows extensive DVT. She was started on heparin drip. hematology evaluated the pt and started her on coumadin (coumadin teaching in place). heparin has arden stopped and pt started on therapeutic lovenox. This is her first DVT, denies traveling long distances. No family history Acute renal insufficiency Unsure of baseline. - IV fluids. - Avoid nephrotoxic agents. DM On metformin as an outpt. - hold metformin. - HbA1c of 10. started pt on levemir 5 units at bedtime. informatics educator consult - insulin sliding scale with Accu-Cheks. HTN -on her home medications Hypothyroidism On levothyroxine as an outpt. PPx: Heparin Discharge Planning Monitor INRs Jordana De La Rosa MD March 25, 2017 14:21
[2017-03-25 16:00] VITALS: BP 120/64; PULSE 75; RESP 18; TEMP 96; O2SAT 94
[2017-03-25] MEDS ORDERED: WARFARIN SOD 2 MG TAB PO ONE (16:00)
[2017-03-25] MEDS: ENOXAPARIN SODIUM 60 MG/0.6 ML SYRINGE SQ SCH (16:47)
[2017-03-25] MEDS: WARFARIN SOD 5 MG TAB PO SCH (16:49)
[2017-03-25 20:00] VITALS: BP 122/58; PULSE 63; RESP 20; TEMP 97.9; O2SAT 96
[2017-03-25] MEDS ORDERED: INSULIN DETEMIR 100 UNITS/ML VIAL SQ SCH (21:00)
--- NOTE | 2017-03-25 21:11 | HHI.PR ---
Review/Management Diagnosis TIA--stable Plan coumadin should be protective for TIA as well Diagnosis/Plan: Subjective Subjective Comments No acute events reported no additional TIA sx. coumadin started Active Medications Current Medications Medications (Trade) Dose Ordered Sig/Ann Route Start Time Stop Time Status Last Admin (Synthroid) 50 mcg MoTuThFrSa@06 PO 03/23/17 21:00 03/25/17 05:49 (Synthroid) 100 mcg SuWe@06 PO 03/24/17 06:00 03/24/17 05:47 (NS Flush) 2 ml UNSCH PRN IV FLUSH 03/23/17 21:30 (NS Flush) 2 ml BID IV FLUSH 03/24/17 09:00 03/25/17 20:58 (Tylenol) 650 mg Q4H PRN PO 03/23/17 21:30 (Colace) 100 mg Q12HR PO 03/23/17 21:30 03/25/17 20:58 (Senokot) 17.2 mg Q12H PRN PO 03/23/17 21:30 (Tylenol) 650 mg Q6H PRN PO 03/23/17 21:30 (Narcan Inj) 0.4 mg UNSCH PRN IV 03/23/17 21:30 Aspirin 81 mg 81 mg DAILY PO 03/24/17 09:00 03/25/17 09:35 (Rocephin Inj/NS Inj) 100 ml @ 200 mls/hr Q24H IV 03/24/17 02:00 03/25/17 01:32 (Norvasc) 10 mg DAILY PO 03/25/17 09:00 03/25/17 09:35 Hydrochlorothiazide 12.5 mg 12.5 mg DAILY PO 03/25/17 09:00 03/25/17 09:34 (Coumadin Consult Pharmacy) 0 ml @ 0 mls/hr UNSCH OTHER 03/24/17 19:00 (Lovenox Inj) 60 mg Q12H SQ 03/25/17 16:00 03/25/17 16:47 (Coumadin) 5 mg DAILY@16 PO 03/25/17 16:00 03/25/17 16:49 (Levemir Inj) 5 units HS SQ 03/25/17 21:00 03/25/17 20:57 Allergies Allergies Coded Allergies Codeine (Verified Allergy, Severe, UNKNOWN "YRS AGO", 03/23/17) Exam I&O / VS 03/24/17 03/24/17 03/25/17 15:00 23:00 07:00 Intake Total 240 ml 240 ml Balance 240 ml 240 ml Intake Oral 240 ml 240 ml # Voids 1 3 # Bowel Movements 0 Vital Signs Date Time Temp Pulse Resp B/P Pulse Ox O2 Delivery O2 Flow Rate FiO2 03/25/17 20:00 97.9 63 20 122/58 96 03/25/17 16:00 96.0 75 18 120/64 94 03/25/17 12:00 97.8 77 18 120/74 95 03/25/17 08:00 96.6 75 18 143/80 94 03/25/17 00:00 96.6 75 20 154/84 97 Exam Comments alert, speech normal CN 2-12 normal Motor 03/05 BUE Objective Radiology Results MRA brain normal carotids--no stenosis Micro and Labs Laboratory Tests Test 03/24/17 03/25/17 22:57 08:30 Activated Partial 42.9 42.0 Thromboplast Time Sodium Level 141 Potassium Level 3.6 Chloride Level 105 Carbon Dioxide Level 27.4 Anion Gap 9 Blood Urea Nitrogen 12 Creatinine 0.60 Estimat Glomerular Filtration 95 Rate Random Glucose 131 Calcium Level 9.5 Iron Level 36 Total Iron Binding Capacity 336 Percent Iron Saturation 10.7 Ferritin 27 Date/Time Procedure Status Source Growth 03/23/17 23:25 Urine Culture - Final Complete Urine Clean Catch Escherichia Coli Chuy Islas PhD March 25, 2017 21:11
[2017-03-25 23:08] VITALS: PULSE 87
[2017-03-26] VITALS (7 sets, daily range): BP systolic 128–147; BP diastolic 65–77; PULSE 68–87; RESP 18–20; TEMP 96.8–98.5; O2SAT 96–97
[2017-03-26] MEDS: cefTRIAXone INJ 1,000 MG in SODIUM CHLORIDE 0.9% INJ 100 ML IV SCH (02:24)
[2017-03-26] MEDS: ENOXAPARIN SODIUM 60 MG/0.6 ML SYRINGE SQ SCH ×2 (04:52→15:27)
[2017-03-26] MEDS: LEVOTHYROXINE SODIUM 50 MCG TAB PO SCH (05:04)
[2017-03-26] MEDS: INSULIN ASPART SUPPLEMENTAL SCALE SQ SCH ×4 (06:43→21:59)
[2017-03-26 08:23] LABS: PROTHROMBIN TIME - PATIENT 10.8 SEC (9.8-11.6)
[2017-03-26] MEDS: HYDROCHLOROTHIAZIDE 12.5 MG CAP PO SCH (09:45)
[2017-03-26] MEDS: ASPIRIN EC 81 MG TABEC PO SCH (09:45)
[2017-03-26] MEDS: DOCUSATE SODIUM 100 MG CAP PO SCH ×2 (09:45→21:51)
--- NOTE | 2017-03-26 10:30 | PD.ONC.PN ---
Subjective Subjective Remarks Afebrile overnight. Patient resting comfortably without complaint. Objective Data Date Time Temp Pulse Resp B/P Pulse Ox O2 Delivery O2 Flow Rate FiO2 03/26/17 08:00 97.0 68 20 138/77 96 03/26/17 04:00 96.8 87 20 128/65 97 03/26/17 00:00 98.1 87 20 136/66 97 03/25/17 23:08 87 03/25/17 20:00 97.9 63 20 122/58 96 03/25/17 16:00 96.0 75 18 120/64 94 03/25/17 12:00 97.8 77 18 120/74 95 03/26/17 03/26/17 03/26/17 07:00 15:00 23:00 Intake Total 120 ml Balance 120 ml Result Diagram: 03/24/17 0238 03/25/17 0830 Laboratory Results Laboratory Tests Test 03/26/17 07:35 Prothrombin Time 10.8 SEC Prothromb Time International 1.0 RATIO Ratio Activated Partial 29.0 SEC Thromboplast Time Culture Results Microbiology Date/Time Procedure Status Source Growth 03/23/17 23:25 Urine Culture - Final Complete Urine Clean Catch Escherichia Coli Administered Medications Medications (Trade) Dose Ordered Sig/Ann Route PRN Reason Start Time Stop Time Status Last Admin Dose Admin Levothyroxine Sodium (Synthroid) 50 mcg MoTuThFrSa@06 PO 03/23/17 21:00 03/26/17 05:04 Levothyroxine Sodium (Synthroid) 100 mcg SuWe@06 PO 03/24/17 06:00 03/24/17 05:47 Sodium Chloride (NS Flush) 2 ml BID IV FLUSH 03/24/17 09:00 03/25/17 20:58 Docusate Sodium (Colace) 100 mg Q12HR PO 03/23/17 21:30 03/26/17 09:45 Aspirin 81 mg 81 mg DAILY PO 03/24/17 09:00 03/26/17 09:45 Ceftriaxone Sodium/Sodium Chloride (Rocephin Inj/NS Inj) 100 ml @ 200 mls/hr Q24H IV 03/24/17 02:00 03/26/17 02:24 Amlodipine Besylate (Norvasc) 10 mg DAILY PO 03/25/17 09:00 03/26/17 09:45 Hydrochlorothiazide (Microzide) 12.5 mg DAILY PO 03/25/17 09:00 03/26/17 09:45 Enoxaparin Sodium (Lovenox Inj) 60 mg Q12H SQ 03/25/17 16:00 03/26/17 04:52 Warfarin Sodium (Coumadin) 5 mg DAILY@16 PO 03/25/17 16:00 03/25/17 16:49 Insulin Detemir (Levemir Inj) 5 units HS SQ 03/25/17 21:00 03/25/17 20:57 Objective Remarks GENERAL: Elderly female, sitting up in bed in nad. SKIN: Warm and dry. HEAD: Normocephalic. EYES: No injection or drainage. NECK: Supple, trachea midline. CARDIOVASCULAR: Regular rate and rhythm RESPIRATORY: Breath sounds equal bilaterally. No accessory muscle use. GASTROINTESTINAL: Abdomen soft, non-tender, nondistended. EXTREMITIES: No cyanosis NEUROLOGICAL: awake and alert, normal speech. moving all extremities. Assessment/Plan Problem List: (1) DVT (deep venous thrombosis) Status: Acute Plan: LLE DVT, extensive, suspect precipitated by immobility prolonged sitting in recliner, decreased PO/fluid intake. Pt with dementia and lives alone. Daughter suspect mother is not eating or drinking. Discussed [facility] bridge to therapeutic INR Plans to follow with Dr. Loya. Stop UFH switch to Lovenox, increase Coumadin dose. Assessment 86 y/o woman with early dementia still living independently, presents with LLE DVT. Plan 1. continue Lovenox bridge to coumadin--Dr. Loya to follow outpatient 2. ok to d/c from hematology perspective 3. hematology will sign off. please call or reconsult if needed. Attending Statement The exam, history, and the medical decision-making described in the above note were completed with the assistance of the mid-level provider. I reviewed and agree with the findings presented. I attest that I had a [id number] encounter with the patient on the same day, and personally performed and documented my assessment and findings in the medical record. Pt seen and examined. L leg better, tolerating [facility] bridge to therapeutic INR. Cr now normal. Still with dementia, unable to call her daughter on phone- reports number is always busy, uncomfortable to answer questions wants daugther to answer them. FU w/ PCP further evaluation Dementia. Cont anticoagulant therapy for extensive seemly unprovoked. Unless risk outweigh benefit. Problem Qualifiers (1) DVT (deep venous thrombosis): Naida Aguilar March 26, 2017 10:30 Silvia Partida MD March 26, 2017 17:59
[2017-03-26] MEDS ORDERED: LEVEMIR SQ (13:48)
[2017-03-26] MEDS ORDERED: ENOX60P SQ (13:48)
[2017-03-26] MEDS ORDERED: COUM5TAB PO (13:48)
--- NOTE | 2017-03-26 13:48 | HHI.DS ---
Discharge Summary Admission Date March 23, 2017 at 18:45 Discharge Date: March 26, 2017 Admitting Diagnosis acute ischemic CVA (1) DVT (deep venous thrombosis) ICD Code: I82.409 Diagnosis: Principal (2) TIA (transient ischemic attack) ICD Code: G45.9 Diagnosis: Principal Procedures none Brief History - From Admission The patient is an 86-year-old female with past medical history of hypertension and diabetes who is presenting to the hospital with slurred speech, facial droop and left leg swelling. The patient is unclear of why she is in the hospital. Her family elaborated that Wednesday morning the patient was acting different than usual. They mentioned the patient's speech was slurred and she had evidence of facial droop. They also noticed that the patient has not been cooking or eating. The patient herself denies any acute complaints. Today the patient was supposed to go to a primary care doctor appointment but that appointment was canceled by the primary care doctor. The patient's family noted that the patient's left foot was swollen and purple and they were concerned about that so the patient was taken to the hospital. The patient denies any prior episodes of slurred speech or facial droop. The patient's family states that the patient is acting more confused than usual. The patient denies any shortness of breath, chest pain or fevers. CBC/BMP: 03/24/17 0238 03/25/17 0830 Significant Findings Laboratory Tests Test 03/23/17 03/23/17 03/24/17 03/24/17 18:12 23:25 02:38 10:34 Hemoglobin 10.9 GM/DL 10.2 GM/DL (11.6-15.3) (11.6-15.3) Hematocrit 33.3 % 31.0 % (35.0-46.0) (35.0-46.0) Mean Corpuscular Hemoglobin 26.8 PG (27.0-34.0) Sodium Level 134 MEQ/L (136-145) Blood Urea Nitrogen 28 MG/DL (7-18) 26 MG/DL (7-18) Creatinine 1.12 MG/DL (0.50-1.00) Estimat Glomerular Filtration 46 ML/MIN (>89) 58 ML/MIN (>89) Rate Random Glucose 315 MG/DL 262 MG/DL (74-106) (74-106) Urine Turbidity CLOUDY (CLEAR) Urine Protein 30 mg/dL (NEG-TRACE) Urine Glucose (UA) 1000 mg/dL (NEG) Urine Occult Blood TRACE (NEG) Urine Leukocyte Esterase LARGE (NEG) Urine RBC 8 /hpf (0-3) Urine WBC 70 /hpf (0-5) Urine Bacteria MANY /hpf (NONE) Urine Mucus FEW /lpf (OCC) Red Blood Count 3.79 MIL/MM3 (4.00-5.30) Hemoglobin A1c 10.0 % (4.3-6.0) Albumin 3.3 GM/DL (3.4-5.0) Thyroid Stimulating Hormone 5.660 uIU/ML 3rd Gen (0.358-3.740) Activated Partial 129.1 SEC Thromboplast Time (24.3-30.1) Test 03/24/17 03/24/17 03/24/17 03/25/17 13:05 14:39 22:57 08:30 Activated Partial 74.1 SEC 48.1 SEC 42.9 SEC 42.0 SEC Thromboplast Time (24.3-30.1) (24.3-30.1) (24.3-30.1) (24.3-30.1) Random Glucose 131 MG/DL (74-106) Iron Level 36 MCG/DL (50-170) Percent Iron Saturation 10.7 % (20-50) Imaging Last Impressions Head Magnetic Resonance Angiography 03/24/17 0000 Signed Impressions: Service Date/Time: Friday, March 24, 2017 21:35 - CONCLUSION: Normal examination for a patient of this age. Kenji Edmonds MD Head CT 03/23/17 1808 Signed Impressions: Service Date/Time: Thursday, March 23, 2017 18:25 - CONCLUSION: 1. No acute hemorrhage or mass effect. 2. Atrophy and chronic small vessel ischemic change. Trever Bautista MD Lower Extremity Ultrasound 03/23/17 0000 Signed Impressions: Service Date/Time: Thursday, March 23, 2017 23:09 - CONCLUSION: Extensive DVT. K. Edgar Jett MD Chest X-Ray 03/23/17 Signed Impressions: Service Date/Time: Thursday, March 23, 2017 21:30 - CONCLUSION: No acute disease. Trever Bautista MD Carotid Artery Ultrasound 03/23/17 Signed Impressions: Service Date/Time: Thursday, March 23, 2017 22:55 - CONCLUSION: No evidence for hemodynamically significant stenosis. Marlen Jett MD Brain MRI 03/23/17 Signed Impressions: Service Date/Time: Thursday, March 23, 2017 22:35 - CONCLUSION: 1. No acute hemorrhage, mass or infarction. 2. Extensive chronic small vessel ischemic change. Trever Bautista MD PE at Discharge GENERAL: Well-nourished, well-developed patient in no apparent distress. CARDIOVASCULAR: Regular rate and rhythm. No murmur appreciated. RESPIRATORY: No accessory muscle use. Clear to auscultation. Breath sounds equal bilaterally. GASTROINTESTINAL: Abdomen soft, non-tender, nondistended. MUSCULOSKELETAL: Left lower extremity with 1+ edema. No calf tenderness. NEUROLOGICAL: Awake and alert. Has a minimal left-sided facial droop. However all other cranial nerves appear normal Motor exam normal. Her speech is clear. moves all extremities. able to feed herself PSYCHIATRIC: Appropriate mood and affect Pt update on day of discharge Pt feeling well. Daughter at bedside. talking w breastfeeding educator. No concerns at this time. Pt denies any pain or discomfort. Hospital Course Most likely a TIA The pt presented with left sided facial droop and slurred speech that started Wednesday morning at the latest. CT of the brain unremarkable. She received ASA. - MRI of brain unremarkable other than Extensive chronic small vessel ischemic change, echo shows an EF of 60-65 with grade 1 diastolic dysfunction, carotid duplex negative for stenosis - MRA-unremarkable - TSH 5.66 and LDL 72 HDL 59 [id number] - Speech therapy evaluated the patient and recommends regular thin liquids diet , physical therapy evaluated the patient and recommends PT at rehabilitation, OT following and recommends OT at rehab - Neuro evaluated the pt. suspect TIA and feels that pt may be a candidate for termite exterminator helper cardiac loop monitoring to r/o atria fib. pt already being anticoagulated and coumadin will help w TIA -UA is positive for UTI, urine cx growing E. Coli sensitive to Rocephin and macrobid. will treat for a total of 7 days. pt already received 3 days of rocephin Left leg swelling New onset. Ultrasound of the left lower extremity shows extensive DVT. She was started on heparin drip. hematology evaluated the pt and started her on lovenox bridging w coumadin (coumadin teaching in place). Monitor INR daily Acute renal insufficiency Unsure of baseline. - IV fluids. - Avoid nephrotoxic agents. DM On metformin as an outpt. - hold metformin. - HbA1c of 10. increased levemir 7 units at bedtime. breastfeeding educator did speak w patient and daughter - insulin sliding scale with Accu-Cheks. Pt Condition on Discharge: Stable Discharge Disposition: Discharge to SNF Discharge Time: > 30 minutes Discharge Instructions DIET: Follow Instructions for: Heart Healthy Diet, Diabetic Diet, Coumadin ( Warfarin) Diet Activities you can perform: Regular-No Restrictions Follow up Referrals: Hematology - 2 Weeks Neurology - 2 Weeks Physician - 1 Week New Medications: Nitrofurantoin Monohydrate Macrocrystals (Macrobid) 100 Mg Capsule 100 MG PO BID Infection Days 4 Ref 0 CAP Enoxaparin Inj (Lovenox Inj) 60 Mg/0.6 Ml Syr 60 MG SQ Q12H Days 6 INJECTION Insulin Detemir Inj (Levemir Inj) 1,000 unit/ 10 ML Vial 7 UNITS SQ HS Days 30 INJECTION Warfarin (Coumadin) 5 Mg Tab 5 MG PO DAILY@16 Days 30 TAB Continued Medications: Amlodipine (Amlodipine) 10 Mg Tab 10 MG PO DAILY Blood Pressure Management #30 Ref 0 TAB Hydrochlorothiazide (Hydrochlorothiazide) 12.5 Mg Cap 12.5 MG PO DAILY IN THE MORNING #30 Ref 0 CAP Levothyroxine (Levothyroxine) 100 Mcg Tab 100 MCG PO SuWe Thyroid #30 Ref 0 TAB Levothyroxine (Levothyroxine) 50 Mcg Tab 50 MCG PO MoTuThFrSa Thyroid #30 Ref 0 TAB Metformin (Metformin) 1,000 Mg Tab 1000 MG PO BIDPC With meals Blood Sugar Management #60 Ref 0 TAB Jordana De La Rosa MD March 26, 2017 13:48
[2017-03-26] MEDS: WARFARIN SOD 5 MG TAB PO SCH (15:27)
[2017-03-26] MEDS ORDERED: WARFARIN SOD 1 MG TAB PO SCH (16:00)
[2017-03-26] MEDS ORDERED: MACR100C2 PO (18:04)
[2017-03-26] MEDS: SODIUM CHLORIDE 0.9% FLUSH 10 ML FLUSH IV FLUSH SCH ×2 (21:00→21:51)
[2017-03-26] MEDS: INSULIN DETEMIR 100 UNITS/ML VIAL SQ SCH (21:58)
[2017-03-27] VITALS (7 sets, daily range): BP systolic 115–145; BP diastolic 66–93; PULSE 66–90; RESP 16–20; TEMP 96.8–98.6; O2SAT 96–98
[2017-03-27] MEDS: cefTRIAXone INJ 1,000 MG in SODIUM CHLORIDE 0.9% INJ 100 ML IV SCH (02:34)
[2017-03-27] MEDS: LEVOTHYROXINE SODIUM 50 MCG TAB PO SCH (04:52)
[2017-03-27] MEDS: ENOXAPARIN SODIUM 60 MG/0.6 ML SYRINGE SQ SCH ×2 (04:52→16:39)
[2017-03-27] MEDS: INSULIN ASPART SUPPLEMENTAL SCALE SQ SCH ×4 (06:45→21:46)
[2017-03-27 08:56] LABS: APTT (PATIENT) 28.7 SEC (24.3-30.1); PROTHROMBIN TIME - PATIENT 10.9 SEC (9.8-11.6)
[2017-03-27] MEDS: ASPIRIN EC 81 MG TABEC PO SCH (09:38)
[2017-03-27] MEDS: HYDROCHLOROTHIAZIDE 12.5 MG CAP PO SCH (09:38)
[2017-03-27] MEDS: SODIUM CHLORIDE 0.9% FLUSH 10 ML FLUSH IV FLUSH SCH ×2 (09:38→21:47)
[2017-03-27] MEDS: DOCUSATE SODIUM 100 MG CAP PO SCH ×2 (09:38→21:47)
--- NOTE | 2017-03-27 09:44 | HHI.FF ---
Face to Face Verification Diagnosis: (1) Acute ischemic right MCA stroke (2) DVT (deep venous thrombosis) (3) TIA (transient ischemic attack) Physical Therapy Order: Evaluate and Treat Home Health Nursing Order: Medical education Signs/symptoms of disease process Medication education-adverse effect Nursing assessment with vital signs I have seen patient Gisela Cruz on 03/27/17. My clinical findings support the need for the requested home health care services because: Ltd mobility - disease progression I certify that my clinical findings support that this patient is homebound because: Post-op weakness Unsteady gait/balance Masha Claudio MD March 27, 2017 09:44
--- NOTE | 2017-03-27 09:48 | HHI.PR ---
Subjective Remarks In bed, appears comfortable. Patient says no events overnight. Says she feels good. No new motor.sensory deficit. Denies any cp,sob, n/v/d/c. Objective Vitals Vital Signs Date Time Temp Pulse Resp B/P Pulse Ox O2 Delivery O2 Flow Rate FiO2 03/27/17 08:19 98.3 70 16 132/83 96 03/27/17 04:00 98.1 74 20 145/66 97 03/27/17 00:45 97.7 75 19 140/67 96 03/26/17 21:30 98.5 76 19 147/72 96 03/26/17 16:00 98.2 74 20 142/66 97 03/26/17 12:00 96.8 86 18 146/68 97 I/O 03/26/17 03/26/17 03/26/17 03/27/17 03/27/17 03/27/17 07:00 15:00 23:00 07:00 15:00 23:00 Intake Total 120 ml 600 ml 800 ml Output Total 0 ml Balance 120 ml 0 ml 600 ml 800 ml Intake Oral 120 ml 600 ml 800 ml Output Stool Total 0 ml # Voids 2 4 2 7 # Bowel Movements 0 0 0 Result Diagram: 03/24/17 0238 03/25/17 0830 Imaging Last Impressions Head Magnetic Resonance Angiography 03/24/17 0000 Signed Impressions: Service Date/Time: Friday, March 24, 2017 21:35 - CONCLUSION: Normal examination for a patient of this age. Kenji Edmonds MD Head CT 03/23/17 1808 Signed Impressions: Service Date/Time: Thursday, March 23, 2017 18:25 - CONCLUSION: 1. No acute hemorrhage or mass effect. 2. Atrophy and chronic small vessel ischemic change. Trever Bautista MD Lower Extremity Ultrasound 03/23/17 0000 Signed Impressions: Service Date/Time: Thursday, March 23, 2017 23:09 - CONCLUSION: Extensive DVT. Marlen Jett MD Chest X-Ray 03/23/17 0000 Signed Impressions: Service Date/Time: Thursday, March 23, 2017 21:30 - CONCLUSION: No acute disease. Trever Bautista MD Carotid Artery Ultrasound 03/23/17 0000 Signed Impressions: Service Date/Time: Thursday, March 23, 2017 22:55 - CONCLUSION: No evidence for hemodynamically significant stenosis. Marlen Jett MD Brain MRI 03/23/17 0000 Signed Impressions: Service Date/Time: Thursday, March 23, 2017 22:35 - CONCLUSION: 1. No acute hemorrhage, mass or infarction. 2. Extensive chronic small vessel ischemic change. Trever Bautista MD Objective Remarks GENERAL: Well-nourished, well-developed patient in no apparent distress. CARDIOVASCULAR: Regular rate and rhythm. No murmur appreciated. RESPIRATORY: No accessory muscle use. Clear to auscultation. Breath sounds equal bilaterally. GASTROINTESTINAL: Abdomen soft, non-tender, nondistended. MUSCULOSKELETAL: Left lower extremity with 1+ edema. No calf tenderness. NEUROLOGICAL: Awake and alert. Has a minimal left-sided facial droop. However all other cranial nerves appear normal Motor exam normal. Her speech is clear. moves all extremities. able to feed herself PSYCHIATRIC: Appropriate mood and affect Procedures none A/P Problem List: (1) DVT (deep venous thrombosis) ICD Code: I82.409 Status: Acute (2) TIA (transient ischemic attack) ICD Code: G45.9 Status: Acute Assessment and Plan Most likely a TIA The pt presented with left sided facial droop and slurred speech that started Wednesday morning at the latest. CT of the brain unremarkable. She received ASA. - MRI of brain unremarkable other than Extensive chronic small vessel ischemic change, echo shows an EF of 60-65 with grade 1 diastolic dysfunction, carotid duplex negative for stenosis - MRA-unremarkable - TSH 5.66 and LDL 72 HDL 59 [id number] - Speech therapy evaluated the patient and recommends regular thin liquids diet , physical therapy evaluated the patient and recommends PT at rehabilitation, OT following and recommends OT at rehab - Neuro evaluated the pt. suspect TIA and feels that pt may be a candidate for nursing home cardiac loop monitoring to r/o atria fib. pt already being anticoagulated and coumadin will help w TIA -UA is positive for UTI, urine cx growing E. Coli sensitive to Rocephin and macrobid. will treat for a total of 7 days. pt already received 3 days of rocephin Left leg swelling New onset. Ultrasound of the left lower extremity shows extensive DVT. She was started on heparin drip. hematology evaluated the pt and started her on lovenox bridging w coumadin (coumadin teaching in place). Monitor INR daily Acute renal insufficiency Unsure of baseline. - IV fluids. - Avoid nephrotoxic agents. DM On metformin as an outpt. - hold metformin. - HbA1c of 10. increased levemir 7 units at bedtime. wellness educator did speak w patient and daughter - insulin sliding scale with Accu-Cheks. Discharge home with home health [employer] insurance denies patient for SNF, patient can be DC home with [facility]. Patient to follow up as OP with PCP and consultants. Also MIGHT GO TO SNF, PCP CAN FOLLOW UP Problem Qualifiers (1) DVT (deep venous thrombosis): Masha Claudio MD March 27, 2017 09:48
--- NOTE | 2017-03-27 15:27 | HHI.FF ---
Face to Face Verification Diagnosis: (1) DVT (deep venous thrombosis) (2) TIA (transient ischemic attack) (3) Acute ischemic right MCA stroke Physical Therapy Order: Evaluate and Treat Home Health Nursing Order: Medical education Signs/symptoms of disease process CHF education Medication education-adverse effect Nursing assessment with vital signs Instructions: Check INR q2-3 days, follow up with PCP and adjust coumadin as need Do lovenox administration teaching I have seen patient Gisela Cruz on 03/27/17. My clinical findings support the need for the requested home health care services because: Ltd mobility - disease progression Deconditioned w/ increased weakness Limited ability to care for self I certify that my clinical findings support that this patient is homebound because: Post-op weakness Unsteady gait/balance Masha Claudio MD March 27, 2017 15:27
[2017-03-27] MEDS: WARFARIN SOD 6 MG TAB PO SCH (16:39)
[2017-03-27] MEDS: INSULIN DETEMIR 100 UNITS/ML VIAL SQ SCH (21:47)
[2017-03-28] VITALS (8 sets, daily range): BP systolic 120–154; BP diastolic 60–70; PULSE 62–95; RESP 18–20; TEMP 96.8–98.4; O2SAT 95–98
[2017-03-28] MEDS: cefTRIAXone INJ 1,000 MG in SODIUM CHLORIDE 0.9% INJ 100 ML IV SCH (01:28)
[2017-03-28] MEDS: LEVOTHYROXINE SODIUM 100 MCG TAB PO SCH (04:58)
[2017-03-28] MEDS: ENOXAPARIN SODIUM 60 MG/0.6 ML SYRINGE SQ SCH ×2 (04:58→17:19)
[2017-03-28] MEDS: INSULIN ASPART SUPPLEMENTAL SCALE SQ SCH ×4 (06:31→22:48)
[2017-03-28 08:46] LABS: APTT (PATIENT) 29.6 SEC (24.3-30.1); PROTHROMBIN TIME - PATIENT 11.4 SEC (9.8-11.6)
[2017-03-28] MEDS: ASPIRIN EC 81 MG TABEC PO SCH (08:50)
[2017-03-28] MEDS: DOCUSATE SODIUM 100 MG CAP PO SCH ×2 (08:50→21:00)
[2017-03-28] MEDS: HYDROCHLOROTHIAZIDE 12.5 MG CAP PO SCH (08:50)
[2017-03-28] MEDS: SODIUM CHLORIDE 0.9% FLUSH 10 ML FLUSH IV FLUSH SCH ×2 (08:51→21:00)
--- NOTE | 2017-03-28 10:04 | HHI.PR ---
Subjective Remarks Complained of headache in the morning, better with tylenol./ No new motor or sensory deficit. No n/v/d/c. Says she can't walk without assistance and she is unsteady. Daughter at bedside says she doesn't feel comfortable to take her home. Will have PT reevaluate patient. Objective Vitals Vital Signs Date Time Temp Pulse Resp B/P Pulse Ox O2 Delivery O2 Flow Rate FiO2 03/28/17 09:46 74 03/28/17 08:00 96.9 73 18 145/68 96 03/28/17 04:00 97.9 77 20 140/65 96 03/28/17 03:38 95 03/28/17 00:00 97.7 62 20 134/66 98 03/27/17 20:00 96.8 90 20 120/93 98 03/27/17 16:13 97.0 72 20 115/68 98 03/27/17 12:36 98.6 80 17 142/78 96 03/27/17 10:56 66 I/O 03/27/17 03/27/17 03/27/17 03/28/17 03/28/17 03/28/17 07:00 15:00 23:00 07:00 15:00 23:00 Intake Total 800 ml 240 ml 240 ml Balance 800 ml 240 ml 240 ml Intake Oral 800 ml 240 ml 240 ml # Voids 7 2 3 # Bowel Movements 0 1 0 Result Diagram: 03/24/17 0238 03/25/17 0830 Imaging Last Impressions Head Magnetic Resonance Angiography 03/24/17 0000 Signed Impressions: Service Date/Time: Friday, March 24, 2017 21:35 - CONCLUSION: Normal examination for a patient of this age. Kenji Edmonds MD Head CT 03/23/17 1808 Signed Impressions: Service Date/Time: Thursday, March 23, 2017 18:25 - CONCLUSION: 1. No acute hemorrhage or mass effect. 2. Atrophy and chronic small vessel ischemic change. Trever Bautista MD Lower Extremity Ultrasound 03/23/17 0000 Signed Impressions: Service Date/Time: Thursday, March 23, 2017 23:09 - CONCLUSION: Extensive DVT. K. Edgar Jett MD Chest X-Ray 03/23/17 0000 Signed Impressions: Service Date/Time: Thursday, March 23, 2017 21:30 - CONCLUSION: No acute disease. Trever Bautista MD Carotid Artery Ultrasound 03/23/17 0000 Signed Impressions: Service Date/Time: Thursday, March 23, 2017 22:55 - CONCLUSION: No evidence for hemodynamically significant stenosis. Marlen Jett MD Brain MRI 03/23/17 0000 Signed Impressions: Service Date/Time: Thursday, March 23, 2017 22:35 - CONCLUSION: 1. No acute hemorrhage, mass or infarction. 2. Extensive chronic small vessel ischemic change. Trever Bautista MD Objective Remarks GENERAL: Well-nourished, well-developed patient in no apparent distress. CARDIOVASCULAR: Regular rate and rhythm. No murmur appreciated. RESPIRATORY: No accessory muscle use. Clear to auscultation. Breath sounds equal bilaterally. GASTROINTESTINAL: Abdomen soft, non-tender, nondistended. MUSCULOSKELETAL: Left lower extremity with 1+ edema. No calf tenderness. NEUROLOGICAL: Awake and alert. Has a minimal left-sided facial droop. However all other cranial nerves appear normal Motor exam normal. Her speech is clear. moves all extremities. able to feed herself PSYCHIATRIC: Appropriate mood and affect Procedures none A/P Problem List: (1) DVT (deep venous thrombosis) ICD Code: I82.409 Status: Acute (2) TIA (transient ischemic attack) ICD Code: G45.9 Status: Acute Assessment and Plan Most likely a TIA The pt presented with left sided facial droop and slurred speech that started Wednesday morning at the latest. CT of the brain unremarkable. She received ASA. - MRI of brain unremarkable other than Extensive chronic small vessel ischemic change, echo shows an EF of 60-65 with grade 1 diastolic dysfunction, carotid duplex negative for stenosis - MRA-unremarkable - TSH 5.66 and LDL 72 HDL 59 [id number] - Speech therapy evaluated the patient and recommends regular thin liquids diet , physical therapy evaluated the patient and recommends PT at rehabilitation, OT following and recommends OT at rehab - Neuro evaluated the pt. suspect TIA and feels that pt may be a candidate for [facility] cardiac loop monitoring to r/o atria fib. pt already being anticoagulated and coumadin will help w TIA -UA is positive for UTI, urine cx growing E. Coli sensitive to Rocephin and macrobid. will treat for a total of 7 days. pt already received 3 days of rocephin Left leg swelling New onset. Ultrasound of the left lower extremity shows extensive DVT. She was started on heparin drip. hematology evaluated the pt and started her on lovenox bridging w coumadin (coumadin teaching in place). Monitor INR daily Acute renal insufficiency Unsure of baseline. - IV fluids. - Avoid nephrotoxic agents. DM On metformin as an outpt. - hold metformin. - HbA1c of 10. increased levemir 7 units at bedtime. art educator did speak w patient and daughter - insulin sliding scale with Accu-Cheks. Discharge home with home health [employer] insurance denies patient for SNF, patient can be DC home with [facility]. Patient to follow up as OP with PCP and consultants. Also MIGHT GO TO SNF, PCP CAN FOLLOW UP. PT to reevaluate patient. Daughter at bedside doesn't feel comfortable to have patient home with home health because she is at increased risk of falls. Problem Qualifiers (1) DVT (deep venous thrombosis): Masha Claudio MD March 28, 2017 10:04
[2017-03-28] MEDS ORDERED: WARFARIN SOD 1 MG TAB PO ONE (16:00)
[2017-03-28] MEDS: WARFARIN SOD 6 MG TAB PO SCH (17:19)
[2017-03-28] MEDS: INSULIN DETEMIR 100 UNITS/ML VIAL SQ SCH (22:47)
[2017-03-29] VITALS (7 sets, daily range): BP systolic 122–148; BP diastolic 59–77; PULSE 71–83; RESP 15–26; TEMP 97.2–98.8; O2SAT 93–99
[2017-03-29] MEDS: cefTRIAXone INJ 1,000 MG in SODIUM CHLORIDE 0.9% INJ 100 ML IV SCH (02:16)
[2017-03-29] MEDS: ENOXAPARIN SODIUM 60 MG/0.6 ML SYRINGE SQ SCH ×2 (05:18→17:58)
[2017-03-29] MEDS: LEVOTHYROXINE SODIUM 50 MCG TAB PO SCH (05:20)
[2017-03-29] MEDS: INSULIN ASPART SUPPLEMENTAL SCALE SQ SCH ×4 (06:29→20:57)
[2017-03-29] MEDS: HYDROCHLOROTHIAZIDE 12.5 MG CAP PO SCH (09:47)
[2017-03-29] MEDS: DOCUSATE SODIUM 100 MG CAP PO SCH ×2 (09:47→20:55)
[2017-03-29] MEDS: ASPIRIN EC 81 MG TABEC PO SCH (09:47)
[2017-03-29] MEDS: SODIUM CHLORIDE 0.9% FLUSH 10 ML FLUSH IV FLUSH SCH ×2 (09:48→20:55)
[2017-03-29 10:39] LABS: APTT (PATIENT) 29.5 SEC (24.3-30.1); INTERNATIONAL NORMALIZED RATIO 1.1 RATIO
--- NOTE | 2017-03-29 11:50 | HHI.PR ---
Subjective Remarks In the chair. Says she is awaiting lunch. No n/v/d/c. No new motor/sensory deficit. Had headache yesterday , resolved with tylenol. Objective Vitals Vital Signs Date Time Temp Pulse Resp B/P Pulse Ox O2 Delivery O2 Flow Rate FiO2 03/29/17 10:20 71 03/29/17 08:38 97.7 76 15 148/68 93 03/29/17 04:00 98.8 74 18 141/74 96 03/29/17 00:00 97.8 81 20 140/75 94 03/28/17 20:00 98.4 78 18 120/64 95 03/28/17 14:53 97.1 68 18 131/60 96 03/28/17 12:12 96.8 69 20 154/70 95 I/O 03/28/17 03/28/17 03/28/17 03/29/17 03/29/17 03/29/17 07:00 15:00 23:00 07:00 15:00 23:00 Intake Total 240 ml 360 ml Balance 240 ml 360 ml Intake Oral 240 ml 360 ml # Voids 3 2 # Bowel Movements 0 1 Result Diagram: 03/25/17 0830 Imaging Last Impressions Head Magnetic Resonance Angiography 03/24/17 0000 Signed Impressions: Service Date/Time: Friday, March 24, 2017 21:35 - CONCLUSION: Normal examination for a patient of this age. Kenji Edmonds MD Head CT 03/23/17 1808 Signed Impressions: Service Date/Time: Thursday, March 23, 2017 18:25 - CONCLUSION: 1. No acute hemorrhage or mass effect. 2. Atrophy and chronic small vessel ischemic change. Trever Bautista MD Lower Extremity Ultrasound 03/23/17 0000 Signed Impressions: Service Date/Time: Thursday, March 23, 2017 23:09 - CONCLUSION: Extensive DVT. Marlen Jett MD Chest X-Ray 03/23/17 0000 Signed Impressions: Service Date/Time: Thursday, March 23, 2017 21:30 - CONCLUSION: No acute disease. Trever Bautista MD Carotid Artery Ultrasound 03/23/17 0000 Signed Impressions: Service Date/Time: Thursday, March 23, 2017 22:55 - CONCLUSION: No evidence for hemodynamically significant stenosis. Marlen Jett MD Brain MRI 03/23/17 0000 Signed Impressions: Service Date/Time: Thursday, March 23, 2017 22:35 - CONCLUSION: 1. No acute hemorrhage, mass or infarction. 2. Extensive chronic small vessel ischemic change. Trever Bautista MD Objective Remarks GENERAL: Well-nourished, well-developed patient in no apparent distress. CARDIOVASCULAR: Regular rate and rhythm. No murmur appreciated. RESPIRATORY: No accessory muscle use. Clear to auscultation. Breath sounds equal bilaterally. GASTROINTESTINAL: Abdomen soft, non-tender, nondistended. MUSCULOSKELETAL: Left lower extremity with 1+ edema. No calf tenderness. NEUROLOGICAL: Awake and alert. Has a minimal left-sided facial droop. However all other cranial nerves appear normal Motor exam normal. Her speech is clear. moves all extremities. able to feed herself PSYCHIATRIC: Appropriate mood and affect Procedures none A/P Problem List: (1) DVT (deep venous thrombosis) ICD Code: I82.409 Status: Acute (2) TIA (transient ischemic attack) ICD Code: G45.9 Status: Acute Assessment and Plan Most likely a TIA The pt presented with left sided facial droop and slurred speech that started Wednesday morning at the latest. CT of the brain unremarkable. She received ASA. - MRI of brain unremarkable other than Extensive chronic small vessel ischemic change, echo shows an EF of 60-65 with grade 1 diastolic dysfunction, carotid duplex negative for stenosis - MRA-unremarkable - TSH 5.66 and LDL 72 HDL 59 [id number] - Speech therapy evaluated the patient and recommends regular thin liquids diet , physical therapy evaluated the patient and recommends PT at rehabilitation, OT following and recommends OT at rehab - Neuro evaluated the pt. suspect TIA and feels that pt may be a candidate for senior living cardiac loop monitoring to r/o atria fib. pt already being anticoagulated and coumadin will help w TIA -UA is positive for UTI, urine cx growing E. Coli sensitive to Rocephin and macrobid. will treat for a total of 7 days. pt already received 3 days of rocephin Left leg swelling New onset. Ultrasound of the left lower extremity shows extensive DVT. She was started on heparin drip. hematology evaluated the pt and started her on lovenox bridging w coumadin (coumadin teaching in place). Monitor INR daily Acute renal insufficiency Unsure of baseline. - IV fluids. - Avoid nephrotoxic agents. DM On metformin as an outpt. - hold metformin. - HbA1c of 10. increased levemir 7 units at bedtime. certified lactation educator did speak w patient and daughter - insulin sliding scale with Accu-Cheks. Discharge home with home health [employer] insurance denies patient for SNF, patient can be DC home with home health. Patient to follow up as OP with PCP and consultants. Also MIGHT GO TO SNF, PCP CAN FOLLOW UP. PT to reevaluate patient. Daughter/patient doesn't feel comfortable to go home with home health because she is at increased risk of falls. Case management following. Problem Qualifiers (1) DVT (deep venous thrombosis): Masha Claudio MD March 29, 2017 11:50
[2017-03-29] MEDS ORDERED: WARFARIN SOD 2 MG TAB PO SCH (16:00)
[2017-03-29] MEDS: WARFARIN SOD 6 MG TAB PO SCH (17:59)
[2017-03-29] MEDS: INSULIN DETEMIR 100 UNITS/ML VIAL SQ SCH (20:56)
[2017-03-30 01:00] VITALS: BP 139/74; PULSE 82; RESP 20; TEMP 96.9; O2SAT 97
[2017-03-30] MEDS: cefTRIAXone INJ 1,000 MG in SODIUM CHLORIDE 0.9% INJ 100 ML IV SCH (02:42)
[2017-03-30] MEDS: ENOXAPARIN SODIUM 60 MG/0.6 ML SYRINGE SQ SCH (02:43)
[2017-03-30 04:59] VITALS: BP 147/73; PULSE 97; RESP 20; TEMP 97.9; O2SAT 98
[2017-03-30] MEDS: LEVOTHYROXINE SODIUM 50 MCG TAB PO SCH (06:00)
[2017-03-30] MEDS: INSULIN ASPART SUPPLEMENTAL SCALE SQ SCH (06:03)
[2017-03-30 06:28] VITALS: PULSE 72
[2017-03-30 07:53] VITALS: BP 130/70; PULSE 70; RESP 19; TEMP 96.8; O2SAT 96
[2017-03-30 08:00] VITALS: PULSE 77
[2017-03-30] MEDS: ASPIRIN EC 81 MG TABEC PO SCH (08:08)
[2017-03-30] MEDS: HYDROCHLOROTHIAZIDE 12.5 MG CAP PO SCH (08:08)
[2017-03-30] MEDS: SODIUM CHLORIDE 0.9% FLUSH 10 ML FLUSH IV FLUSH SCH (08:08)
[2017-03-30] MEDS: DOCUSATE SODIUM 100 MG CAP PO SCH (08:08)
[2017-03-30 08:37] LABS: HEMATOCRIT 30.4 % (35.0-46.0); MEAN CELL VOLUME 81.6 FL (80.0-100.0); MEAN CORPUSCULAR HEMOGLOBIN 27.1 PG (27.0-34.0); MEAN CORPUSCULAR HGB CONC 33.3 % (32.0-36.0); PLATELET COUNT 314 TH/MM3 (150-450); RED BLOOD COUNT 3.73 MIL/MM3 (4.00-5.30); RED CELL DISTRIBUTION WIDTH 15.2 % (11.6-17.2); REVIEW FLAG FINAL; WHITE BLOOD COUNT 6.6 TH/MM3 (4.0-11.0)
[2017-03-30 08:59] LABS: APTT (PATIENT) 29.4 SEC (24.3-30.1); INTERNATIONAL NORMALIZED RATIO 1.2 RATIO; PROTHROMBIN TIME - PATIENT 13.4 SEC (9.8-11.6)
--- NOTE | 2017-03-30 11:33 | HHI.PR ---
Objective Vitals Vital Signs Date Time Temp Pulse Resp B/P Pulse Ox O2 Delivery O2 Flow Rate FiO2 03/30/17 08:00 77 03/30/17 07:53 96.8 70 19 130/70 96 03/30/17 06:28 72 03/30/17 04:59 97.9 97 20 147/73 98 03/30/17 01:00 96.9 82 20 139/74 97 03/29/17 20:00 97.2 83 26 122/59 96 03/29/17 12:30 97.2 74 17 142/65 96 I/O 03/29/17 03/29/17 03/29/17 03/30/17 03/30/17 03/30/17 07:00 15:00 23:00 07:00 15:00 23:00 Intake Total 480 ml 120 ml Balance 480 ml 120 ml Intake Oral 480 ml 120 ml # Voids 2 3 # Bowel Movements 1 1 Result Diagram: 03/30/17 0737 Objective Remarks GENERAL: Well-nourished, well-developed patient in no apparent distress. CARDIOVASCULAR: Regular rate and rhythm. No murmur appreciated. RESPIRATORY: No accessory muscle use. Clear to auscultation. Breath sounds equal bilaterally. GASTROINTESTINAL: Abdomen soft, non-tender, nondistended. MUSCULOSKELETAL: Left lower extremity with 1+ edema. No calf tenderness. NEUROLOGICAL: Awake and alert. Has a minimal left-sided facial droop. However all other cranial nerves appear normal Motor exam normal. Her speech is clear. moves all extremities. able to feed herself PSYCHIATRIC: Appropriate mood and affect Procedures none A/P Problem List: (1) DVT (deep venous thrombosis) ICD Code: I82.409 Status: Acute (2) TIA (transient ischemic attack) ICD Code: G45.9 Status: Acute Assessment and Plan Most likely a TIA The pt presented with left sided facial droop and slurred speech that started Wednesday morning at the latest. CT of the brain unremarkable. She received ASA. - MRI of brain unremarkable other than Extensive chronic small vessel ischemic change, echo shows an EF of 60-65 with grade 1 diastolic dysfunction, carotid duplex negative for stenosis - MRA-unremarkable - TSH 5.66 and LDL 72 HDL 59 - Speech therapy evaluated the patient and recommends regular thin liquids diet , physical therapy evaluated the patient and recommends PT at rehabilitation, OT following and recommends OT at rehab - Neuro evaluated the pt. suspect TIA and feels that pt may be a candidate for technician terminal and repeater cardiac loop monitoring to r/o atria fib. pt already being anticoagulated and coumadin will help w TIA -UA is positive for UTI, urine cx growing E. Coli sensitive to Rocephin and macrobid. will treat for a total of 7 days. pt already received 3 days of rocephin Left leg swelling New onset. Ultrasound of the left lower extremity shows extensive DVT. She was started on heparin drip. hematology evaluated the pt and started her on lovenox bridging w coumadin (coumadin teaching in place). Monitor INR daily Acute renal insufficiency Unsure of baseline. - IV fluids. - Avoid nephrotoxic agents. DM On metformin as an outpt. - hold metformin. - HbA1c of 10. increased levemir 7 units at bedtime. parent educator did speak w patient and daughter - insulin sliding scale with Accu-Cheks. Discharge home with home health [employer] insurance denies patient for SNF, patient can be DC home with home health. Patient to follow up as OP with PCP and consultants. Also MIGHT GO TO SNF, PCP CAN FOLLOW UP. PT to reevaluate patient. Daughter/patient doesn't feel comfortable to go home with home health because she is at increased risk of falls. Case management following. Problem Qualifiers (1) DVT (deep venous thrombosis): Masha Claudio MD March 30, 2017 11:33
--- NOTE | 2017-03-30 11:56 | HHI.DS ---
Discharge Summary Admission Date March 23, 2017 at 18:45 Discharge Date: March 30, 2017 Admitting Diagnosis acute ischemic CVA (1) Acute ischemic right MCA stroke ICD Code: I63.511 (2) DVT (deep venous thrombosis) ICD Code: I82.409 Diagnosis: Principal (3) TIA (transient ischemic attack) ICD Code: G45.9 Diagnosis: Principal Procedures none Brief History - From Admission The patient is an 86-year-old female with past medical history of hypertension and diabetes who is presenting to the hospital with slurred speech, facial droop and left leg swelling. The patient is unclear of why she is in the hospital. Her family elaborated that Wednesday morning the patient was acting different than usual. They mentioned the patient's speech was slurred and she had evidence of facial droop. They also noticed that the patient has not been cooking or eating. The patient herself denies any acute complaints. Today the patient was supposed to go to a primary care doctor appointment but that appointment was canceled by the primary care doctor. The patient's family noted that the patient's left foot was swollen and purple and they were concerned about that so the patient was taken to the hospital. The patient denies any prior episodes of slurred speech or facial droop. The patient's family states that the patient is acting more confused than usual. The patient denies any shortness of breath, chest pain or fevers. CBC/BMP: 03/30/17 0737 Significant Findings Laboratory Tests Test 03/29/17 03/30/17 09:52 07:37 Prothrombin Time 12.0 SEC 13.4 SEC (9.8-11.6) (9.8-11.6) Red Blood Count 3.73 MIL/MM3 (4.00-5.30) Hemoglobin 10.1 GM/DL (11.6-15.3) Hematocrit 30.4 % (35.0-46.0) Imaging Last Impressions Head Magnetic Resonance Angiography 03/24/17 0000 Signed Impressions: Service Date/Time: Friday, March 24, 2017 21:35 - CONCLUSION: Normal examination for a patient of this age. Kenji Edmonds MD Head CT 03/23/17 1808 Signed Impressions: Service Date/Time: Thursday, March 23, 2017 18:25 - CONCLUSION: 1. No acute hemorrhage or mass effect. 2. Atrophy and chronic small vessel ischemic change. Trever Bautista MD Lower Extremity Ultrasound 03/23/17 0000 Signed Impressions: Service Date/Time: Thursday, March 23, 2017 23:09 - CONCLUSION: Extensive DVT. Marlen Jett MD Chest X-Ray 03/23/17 0000 Signed Impressions: Service Date/Time: Thursday, March 23, 2017 21:30 - CONCLUSION: No acute disease. Trever Bautista MD Carotid Artery Ultrasound 03/23/17 0000 Signed Impressions: Service Date/Time: Thursday, March 23, 2017 22:55 - CONCLUSION: No evidence for hemodynamically significant stenosis. Marlen Jett MD Brain MRI 03/23/17 0000 Signed Impressions: Service Date/Time: Thursday, March 23, 2017 22:35 - CONCLUSION: 1. No acute hemorrhage, mass or infarction. 2. Extensive chronic small vessel ischemic change. Trever Bautista MD PE at Discharge GENERAL: Well-nourished, well-developed patient in no apparent distress. CARDIOVASCULAR: Regular rate and rhythm. No murmur appreciated. RESPIRATORY: No accessory muscle use. Clear to auscultation. Breath sounds equal bilaterally. GASTROINTESTINAL: Abdomen soft, non-tender, nondistended. MUSCULOSKELETAL: Left lower extremity with 1+ edema. No calf tenderness. NEUROLOGICAL: Awake and alert. Has a minimal left-sided facial droop. However all other cranial nerves appear normal Motor exam normal. Her speech is clear. moves all extremities. able to feed herself PSYCHIATRIC: Appropriate mood and affect Pt update on day of discharge No events overnight. No complaints. VSS. Patient walked with PT and plan to DC home with home health Hospital Course Most likely a TIA The pt presented with left sided facial droop and slurred speech that started Wednesday morning at the latest. CT of the brain unremarkable. She received ASA. - MRI of brain unremarkable other than Extensive chronic small vessel ischemic change, echo shows an EF of 60-65 with grade 1 diastolic dysfunction, carotid duplex negative for stenosis - MRA-unremarkable - TSH 5.66 and LDL 72 HDL 59 [id number] - Speech therapy evaluated the patient and recommends regular thin liquids diet , physical therapy evaluated the patient and recommends PT at rehabilitation, OT following and recommends OT at rehab - Neuro evaluated the pt. suspect TIA and feels that pt may be a candidate for watermelon inspector cardiac loop monitoring to r/o atria fib. pt already being anticoagulated and coumadin will help w TIA -UA is positive for UTI, urine cx growing E. Coli sensitive to Rocephin and macrobid. will treat for a total of 7 days. pt already received 3 days of rocephin Left leg swelling New onset. Ultrasound of the left lower extremity shows extensive DVT. She was started on heparin drip. hematology evaluated the pt and started her on lovenox bridging w coumadin (coumadin teaching in place). Monitor INR daily Acute renal insufficiency Unsure of baseline. - IV fluids. - Avoid nephrotoxic agents. DM On metformin as an outpt. - hold metformin. - HbA1c of 10. increased levemir 7 units at bedtime. family life educator did speak w patient and daughter - insulin sliding scale with Accu-Cheks. Discharge home with home health [employer] insurance denies patient for SNF, patient can be DC home with home health. Patient to follow up as OP with PCP and consultants. Also MIGHT GO TO SNF, PCP CAN FOLLOW UP. PT to reevaluate patient. Daughter/patient doesn't feel comfortable to go home with home health because she is at increased risk of falls. Case management following. Patient was discharged home with home [facility] in stable condition/ Patient is at increased risk of falls. Insurance declined patient goind to SNF. Patient to have home health. Pt Condition on Discharge: Stable Discharge Disposition: Disch w/ Home Health Serv Discharge Time: > 30 minutes Discharge Instructions DIET: Follow Instructions for: Heart Healthy Diet, Diabetic Diet, Coumadin ( Warfarin) Diet Activities you can perform: Regular-No Restrictions Follow up Referrals: Hematology - 2 Weeks Neurology - 2 Weeks Physician - 1 Week New Medications: Nitrofurantoin Monohydrate Macrocrystals (Macrobid) 100 Mg Capsule 100 MG PO BID Infection Days 4 Ref 0 CAP Enoxaparin Inj (Lovenox Inj) 60 Mg/0.6 Ml Syr 60 MG SQ Q12H Days 6 INJECTION Insulin Detemir Inj (Levemir Inj) 1,000 unit/ 10 ML Vial 7 UNITS SQ HS Days 30 INJECTION Warfarin (Coumadin) 5 Mg Tab 5 MG PO DAILY@16 Days 30 TAB Continued Medications: Amlodipine (Amlodipine) 10 Mg Tab 10 MG PO DAILY Blood Pressure Management #30 Ref 0 TAB Hydrochlorothiazide (Hydrochlorothiazide) 12.5 Mg Cap 12.5 MG PO DAILY IN THE MORNING #30 Ref 0 CAP Levothyroxine (Levothyroxine) 100 Mcg Tab 100 MCG PO SuWe Thyroid #30 Ref 0 TAB Levothyroxine (Levothyroxine) 50 Mcg Tab 50 MCG PO [id number] Thyroid #30 Ref 0 TAB Metformin (Metformin) 1,000 Mg Tab 1000 MG PO BIDPC With meals Blood Sugar Management #60 Ref 0 TAB Masha Claudio MD March 30, 2017 11:56
[2017-03-30] MEDS ORDERED: WARFARIN SOD 2 MG TAB PO SCH (16:00)
[2017-03-30] MEDS ORDERED: ENOX60IN SQ (16:02)
== END 2017-03-30 11:29 | disposition home health service (06) | DRG 69 ==
LOC: NEPC 17:12 → NEDA 18:45 → N05A 23:37
PROVIDERS: ADMIT Hospitalist; ATTEND Hospitalist
DX: G45.9 Transient cerebral ischemic attack, unspecified (principal); I82.402 Acute embolism and thrombosis of unspecified deep veins of left lower extremity; N39.0 Urinary tract infection, site not specified; F03.90 Unspecified dementia, unspecified severity, without behavioral disturbance, psychotic disturbance, mood disturbance, and anxiety; G37.8 Other specified demyelinating diseases of central nervous system; E11.9 Type 2 diabetes mellitus without complications; I10 Essential (primary) hypertension; B96.20 Unspecified Escherichia coli [E. coli] as the cause of diseases classified elsewhere; I82.412 Acute embolism and thrombosis of left femoral vein; I82.432 Acute embolism and thrombosis of left popliteal vein; I82.812 Embolism and thrombosis of superficial veins of left lower extremity; E86.0 Dehydration; R47.81 Slurred speech; Z79.84 Long term (current) use of oral hypoglycemic drugs; R29.810 Facial weakness; E03.9 Hypothyroidism, unspecified; Z82.3 Family history of stroke; N28.9 Disorder of kidney and ureter, unspecified
CPT/HCPCS: 70450; 70544; 70551; 71010; 80048; 80053; 80061; 81001; 82728; 82948; 83036; 83540; 83550; 84443; 85025; 85027; 85610; 85730; 87077; 87086; 87186; 93005; 93306; 93880; 93971; 96374; J0696; J1644; J1650; J1815